=== PATIENT | female | born 1990 | race Caucasian/White ===

== ENCOUNTER 2016-03-21 17:41 | Emergency (ER) | payer OTHER ==
[~2016-03-21] VITALS: Wt 66.5 kg
[~2016-03-21 17:41] MED LIST: ALBU8.5H3 INH; AZIT250T94 PO; BENZ100C70 PO; CETI10CA PO; D-ME118S6 PO; FIORICET PO; FLUT9.9S NASAL; GUAI473L22 PO; HYDR-906 PO; IBUP-1542 PO; IBUP800T25 PO; METH-70 PO; ONDA4TAB14 PO; ONDA4TAB35 PO
[2016-03-21 19:42] LABS: ADD UMIC YES; URINE BILIRUBIN (Dip) NEGATIVE (NEGATIVE); URINE BLOOD (Dip) NEGATIVE (NEGATIVE); URINE COLOR LT. YELLOW (YELLOW); URINE GLUCOSE (Dip) NEGATIVE (NEGATIVE); URINE KETONES (Dip) NEGATIVE (NEGATIVE); URINE LEUKOCYTE ESTERASE (Dip) TRACE (NEGATIVE); URINE NITRITE (Dip) NEGATIVE (NEGATIVE); URINE TOTAL PROTEIN (Dip) NEGATIVE (NEGATIVE); URINE UROBILINOGEN (Dip) 1.0 E.U./dL (0.1-1.0)
[2016-03-21 19:46] LABS: BASOPHILS % 0.5 % (0.0-2.0); EOSINOPHILS # 0.2 10^3/ul (0.0-0.5); EOSINOPHILS % 1.7 % (0.0-7.0); HEMATOCRIT 38.8 % (37.0-47.0); LYMPHOCYTES # 2.1 10^3/ul (0.8-2.9); LYMPHOCYTES % 22.7 % (15.0-51.0); MEAN CORPUSCULAR HEMOGLOBIN 29.1 pg (29.0-33.0); MEAN CORPUSCULAR HGB CONC 33.6 g/dl (32.0-37.0); MEAN CORPUSCULAR VOLUME 86.7 fl (82.0-101.0); MONOCYTE # 0.7 10^3/ul (0.3-0.9); MONOCYTES % 7.2 % (0.0-11.0); NEUTROPHIL # 6.2 10^3/ul (1.6-7.5); NEUTROPHILS % 67.9 % (39.0-77.0); PLATELET COUNT 244 10^3/UL (140-440); RED BLOOD COUNT 4.47 10^6/ul (4.20-5.40); RED CELL DISTRIBUTION WIDTH 14.1 % (11.5-14.5); UNCORRECTED WBC 9.2 10^3/ul (4.8-10.8); WHITE BLOOD COUNT 9.2 10^3/ul (4.8-10.8)
[2016-03-21 19:47] LABS: CONDITION 1
[2016-03-21 19:49] LABS: POTASSIUM 3.7 mmol/L (3.5-5.1)
[2016-03-21 19:51] LABS: BILIRUBIN,INDIRECT 0.2 mg/dl (0-1.1); BILIRUBIN,TOTAL 0.2 mg/dl (0.2-1.3); CREATININE 0.72 mg/dl (0.44-1.00)
[2016-03-21 19:52] LABS: ALBUMIN/GLOBULIN RATIO 1.14; CALCIUM 8.9 mg/dl (8.4-10.2); TOTAL PROTEIN 7.5 g/dl (6.1-8.1)
[2016-03-21 19:54] LABS: SQUAMOUS EPITHELIAL CELL,UR MODERATE; URINE RBCS 0-2 /HPF (0)
[2016-03-21] MEDS ORDERED: ACET500C5 PO (20:13)
--- NOTE | 2016-03-21 20:17 | ERD ---
ER Documentation Chief Complaint Date/Time DATE: 03/21/16 TIME: 20:14 Chief Complaint right side abdominal pain for the past 2 wks. nausea no vomiting HPI This is a 25-year-old female presents to the ER with right-sided lower abdominal pain for the last 2 weeks. Patient states that the pain is piercing in quality it is nonradiating. Patient has not tried anything for the pain. She does admit to some diarrhea. She admits to nausea however denies vomiting. Patient denies any urinary frequency or dysuria. She denies any vaginal discharge. Her last normal menstrual period was in January. ROS 12 point review of systems was done, all negative except per HPI. Medications Home Meds Active Scripts Acetaminophen* (Tylophen*) 500 Mg Capsule, 1 CAP PO Q6H Y for PAIN AND OR ELEVATED TEMP, #20 CAP Prov:GILLIAN OLEA 03/21/16 Ondansetron (Ondansetron Odt) 4 Mg Tab.rapdis, 4 MG PO Q8 Y for NAUSEA AND/OR VOMITING, #30 TAB Prov:LELEEE SAEED NP 02/02/16 Fluticasone Propionate (Flonase Allergy Relief) 9.9 Ml [place].susp, 1 SPRAY NASAL BID, #1 BOTTLE TO EACH NOSTRIL Prov:LEELEE SAEED NP 02/02/16 Albuterol Sulfate* (Proair HFA*) 8.5 Gm Hfa.aer.ad, 2 PUFF INH Q4H Y for WHEEZING AND SOB, #1 INHALER Prov:LEELEE SAEED NP 02/02/16 Cetirizine Hcl* (Zyrtec*) 10 Mg Capsule, 10 MG PO DAILY, #30 TAB.CHEW Prov:LEELEE SAEED NP 02/02/16 Ibuprofen* (Motrin*) 600 Mg Tab, 600 MG PO Q6H Y for PAIN AND OR ELEVATED TEMP, #30 TAB Prov:LEELEE SAEED NP 02/02/16 Guaifenesin-Codeine Phosphate* (Guaifenesin* AC Cough Syrup) 473 Ml Liquid, 5 ML PO Q4H Y for COUGH, #60 ML Prov:LEELEE SAEED NP 02/02/16 Hydrocodone/Acetaminophen (Pep 5-325 Tablet) 1 Each Tablet, 1 TAB PO Q6H Y for PAIN, #7 TAB Prov:MONICA OWENS. DO 01/04/16 Methocarbamol* (Robaxin*) 750 Mg Tablet, 750 MG PO TID, #30 TAB Prov:IJEOMA OWENSS Carole. DO 01/04/16 Ibuprofen* (Motrin*) 800 Mg Tab, 800 MG PO Q6H Y for PAIN AND OR ELEVATED TEMP, #30 TAB Prov:IJEOMA OWENSS A. DO 01/04/16 Ibuprofen* (Motrin*) 600 Mg Tab, 600 MG PO Q6, #30 TAB Prov:GILLIAN OLEA 07/10/15 Ondansetron Hcl* (Zofran* ODT) 4 mg -ODT Tab.disper, 4 MG PO Q6 Y for NAUSEA AND /OR VOMITING, #5 TAB Prov:SARTHAK SILVERMAN PA-C 06/08/15 Dextromethorphan Hb-Promethazine Hcl (Promethazine DM Syrup) 180 Ml Syrup, 5 ML PO Q6H Y for COUGH, #4 OZ Prov:SARTHAK SILVERMAN PA-C 06/08/15 Azithromycin* (Zithromax*) 250 Mg Tablet, 250 MG PO .ZPACK DIRECTED, #6 TAB TAKE 500 MG (2 TABS) THE FIRST DAY THEN 250 MG (1 TAB) DAYS 2-5 Prov:SARTHAK SILVERMAN PA-C 06/08/15 Ibuprofen* (Ibuprofen*) 600 Mg Tablet, 600 MG PO Q6H Y for PAIN AND OR ELEVATED TEMP, #30 TAB Prov:SARTHAK SILVERMAN PA-C 06/08/15 Benzonatate* (Tessalon Perle*) 100 Mg Capsule, 100 MG PO Q8H Y for COUGH, #14 CAP Prov:SARTHAK SILVERMAN PA-C 06/08/15 Acetamin/Butalbital/Caffeine* (Fioricet*) 1 Tab Tab, 1 TAB PO Q4H Y for PAIN LEVEL 1-5, #20 TAB Prov:NICK HENEDRSON DO 04/03/15 Allergies Allergies: Coded Allergies: Bee Sting Kit (Verified Allergy, Mild, 05/18/11) No Known Drug Allergies (Verified Allergy, Unknown, 02/28/14) PMhx/Soc Medical and Surgical Hx: pt denies Medical Hx, pt denies Surgical Hx History of Surgery: No Anesthesia Reaction: No Hx Neurological Disorder: No Hx Respiratory Disorders: No Hx Cardiac Disorders: No Hx Psychiatric Problems: No Hx Miscellaneous Medical Probl: No Hx Alcohol Use: No Hx Substance Use: No Hx Tobacco Use: No Physical Exam Vitals Vital Signs Date Time Temp Pulse Resp B/P Pulse Ox O2 Delivery O2 Flow Rate FiO2 03/21/16 18:10 98.7 68 20 103/85 98 Physical Exam GENERAL: The patient is well developed and appropriate for usual state of health , in no apparent distress. HEENT: Atraumatic. C CHEST: Clear to auscultation bilaterally. There are no rales, wheezes or rhonchi. HEART: Regular rate and rhythm. No murmurs, clicks, rubs or gallops. ABDOMEN: Soft, and nondistended. Good bowel sounds. No rebound or guarding. No gross peritonitis. No gross organomegaly or masses. No Alanis sign or McBurney point tenderness. slightly tender to palpation in the right pelvic area. BACK: No midline or flank tenderness. no cva tenderness EXTREMITIES: Equal pulses bilaterally. There is no peripheral clubbing, cyanosis or edema. No focal swelling or erythema. Full range of motion. Grossly neurovascularly intact. NEURO: Alert and oriented. Result Diagram: 03/21/16 1720 03/21/16 1720 Results 24 hrs Laboratory Tests Test 03/21/16 17:20 Alanine Aminotransferase (ALT/SGPT) 27IU/L Albumin 4.0g/dl Albumin/Globulin Ratio 1.14 Alkaline Phosphatase 30IU/L Anion Gap 15 Aspartate Amino Transf (AST/SGOT) 15IU/L Basophils # 0.010^3/ul Basophils % 0.5% Blood Urea Nitrogen 16mg/dl Calcium Level 8.9mg/dl Carbon Dioxide Level 27mmol/L Chloride Level 103mmol/L Creatinine 0.72mg/dl Direct Bilirubin 0.00mg/dl Eosinophils # 0.210^3/ul Eosinophils % 1.7% Globulin 3.50g/dl Glucose Level 71mg/dl Hematocrit 38.8% Hemoglobin 13.0g/dl Indirect Bilirubin 0.2mg/dl Lymphocytes # 2.110^3/ul Lymphocytes % 22.7% Mean Corpuscular Hemoglobin 29.1pg Mean Corpuscular Hemoglobin Concent 33.6g/dl Mean Corpuscular Volume 86.7fl Mean Platelet Volume 8.0fl Monocytes # 0.710^3/ul Monocytes % 7.2% Neutrophils # 6.210^3/ul Neutrophils % 67.9% Nucleated Red Blood Cells # 0.010^3/ul Nucleated Red Blood Cells % 0.0/100WBC Platelet Count 46538^3/UL Potassium Level 3.7mmol/L Red Blood Count 4.4710^6/ul Red Cell Distribution Width 14.1% Sodium Level 141mmol/L Total Bilirubin 0.2mg/dl Total Protein 7.5g/dl Urine Bilirubin NEGATIVE Urine Clarity CLEAR Urine Color LT. YELLOW Urine Glucose NEGATIVE% Urine Hemoglobin NEGATIVE Urine Ketones NEGATIVE Urine Leukocyte Esterase TRACE Urine Microscopic RBC 0-2/HPF Urine Microscopic WBC 0-2/HPF Urine Nitrite NEGATIVE Urine Specific [place] 1.025 Urine Squamous Epithelial Cells MODERATE Urine Total Protein NEGATIVE Urine Urobilinogen 1.0 E.U./dL Urine pH 6.0 White Blood Count 9.210^3/ul Procedures/MDM Differential diagnosis: Threatened , missed , incomplete , ectopic , molar , UTI, pyelonephritis. Patient was sent by urgent care doctor to rule out appendicitis, however patient's test was positive. Because patient has abdominal pain she was worked up to rule out ectopic . I am awaiting ultrasound and beta quant. Please refer to other providers note for further management and care. If everything is normal patient will be sent home with Tylenol for pain control. Departure Diagnosis: Primary Impression: Condition: Stable Patient Instructions: , New Dx Additional Instructions: Call your primary care doctor TOMORROW for an appointment during the next 1-2 days.See the doctor sooner or return here if your condition worsens before your appointment time. GILLIAN OLEA Mar 21, 2016 20:17
--- NOTE | 2016-03-21 20:49 | RADRPT ---
PROCEDURE: US Pelvis. CLINICAL INDICATION: Vaginal bleeding. Pelvic pain. TECHNIQUE: Multiple sonographic images of the pelvis were obtained utilizing a transabdominal and endovaginal technique. The images were reviewed on a PACS workstation. COMPARISON: None available. FINDINGS: There is an intrauterine gestational sac. A yolk sac or pole is not seen. The mean gestation al sac size is 0.44 cm consistent with a 5-week 1-day gestation. No abnormal fluid collections are seen.. The right ovary has a normal echotexture and measures 2.9 x 1.2 x 1.6 cm. There is a 1.4 x 1. 2 x 1.1 cm left ovarian cyst. The left ovary has a normal echotexture and measures 2.9 x 2.2 x 2.1 c m. No adnexal masses are noted. IMPRESSION: 1. Tiny intrauterine gestational sac which measures 5 weeks 1 day without a yolk sac or pole c onsistent with an early intrauterine gestation. Correlation with serial quantitative beta HCGs and follow-up ultrasound is suggested. 2. 1.4 x 1.2 x 1.1 cm left ovarian cyst, likely a corpus luteal cyst. RPTAT: [facility] Physician Dima Date Time Electronically viewed and signed by Physician Dima on 03/21/2016 20:49 /
--- NOTE | 2016-03-21 21:00 | EN ---
Date/Time of Note Date/Time of Note DATE: 03/21/16 TIME: 20:59 ER Progress Note This is a 25-year-old female presenting to the emergency room with a new diagnosis of . This patient was passed down to me from Doretha Akhtar to record her ultrasound. OB ultrasound stated 1. Tiny intrauterine gestational sac which measures 5 weeks 1 day without a yolk sac or pole consistent with an early intrauterine gestation. Correlation with serial quantitative beta HCGs and follow-up ultrasound is suggested. 2. 1.4 x 1.2 x 1.1 cm left ovarian cyst, likely a corpus luteal cyst. Patient was discharged per Doretha Akhtar's note SARTHAK SILVERMAN PA-C Mar 21, 2016 21:00
[2016-03-21 21:11] VITALS: BP 106/56; PULSE 83; RESP 20; TEMP 98.7
== END 2016-03-21 21:05 | disposition home or self-care (01) ==
LOC: FTE 17:41
DX: R10.2 Pelvic and perineal pain (principal); Z33.1 Pregnant state, incidental
CPT/HCPCS: 36415; 76801; 76817; 80053; 81001; 84702; 85025; 86900; 86901; Z7502; 81003

== ENCOUNTER 2016-03-28 10:44 | Emergency (ER) | END 2016-03-28 12:36 | disposition left against medical advice (07) | DX: O20.0 Threatened abortion (principal); Z3A.00 Weeks of gestation of pregnancy not specified ==

== ENCOUNTER 2016-08-31 20:02 | Emergency (ER) | payer OTHER ==
[~2016-08-31] VITALS: Ht 162.6 cm; Wt 73.5 kg
[~2016-08-31 20:02] MED LIST changes: +ACET500C5 PO
[2016-08-31 20:06] VITALS: Ht 162.6 cm; Wt 73.5 kg
[2016-08-31] MEDS ORDERED: ACETAMINOPHEN 325 MG TAB PO STA (21:01)
[2016-08-31 21:28] LABS: BASOPHILS % 0.3 % (0.0-2.0); EOSINOPHILS # 0.2 10^3/ul (0.0-0.5); EOSINOPHILS % 2.5 % (0.0-7.0); HEMATOCRIT 36.8 % (37.0-47.0); HEMOGLOBIN 12.7 g/dl (12.0-16.0); LYMPHOCYTES # 2.1 10^3/ul (0.8-2.9); LYMPHOCYTES % 21.5 % (15.0-51.0); MEAN CORPUSCULAR HGB CONC 34.5 g/dl (32.0-37.0); MEAN PLATELET VOLUME 9.7 fl (7.4-10.4); MONOCYTE # 0.5 10^3/ul (0.3-0.9); MONOCYTES % 5.4 % (0.0-11.0); NEUTROPHIL # 6.7 10^3/ul (1.6-7.5); NEUTROPHILS % 69.8 % (39.0-77.0); PLATELET COUNT 231 10^3/UL (140-415); RED BLOOD COUNT 4.23 10^6/ul (4.20-5.40); RED CELL DISTRIBUTION WIDTH 13.9 % (11.5-14.5); WHITE BLOOD COUNT 9.7 10^3/ul (4.8-10.8)
[2016-08-31 21:37] LABS: ADD UMIC YES; UR ASCORBIC ACID NEGATIVE (NEGATIVE); UR BILIRUBIN (Dip) NEGATIVE (NEGATIVE); UR BLOOD (Dip) NEGATIVE (NEGATIVE); UR CLARITY SLIGHTLY CLOUDY (CLEAR); UR COLOR YELLOW (YELLOW); UR GLUCOSE (Dip) NEGATIVE (NEGATIVE); UR KETONES (Dip) NEGATIVE (NEGATIVE); UR LEUKOCYTE ESTERASE (Dip) 3+ Leu/ul (NEGATIVE); UR NITRITE (Dip) NEGATIVE (NEGATIVE); UR RBC 2 /HPF (0-5); UR SPECIFIC GRAVITY (Dip) 1.023 (1.003-1.030); UR SQUAMOUS EPITHELIAL CELL MODERATE /HPF (FEW); UR TOTAL PROTEIN (Dip) NEGATIVE (NEGATIVE); UR UROBILINOGEN (Dip) NEGATIVE (NEGATIVE)
--- NOTE | 2016-08-31 21:44 | RADRPT ---
PROCEDURE: US Abdomen - survey. CLINICAL INDICATION: Trauma. Pain. TECHNIQUE: Real-time ultrasound survey of the abdomen was performed. COMPARISON: None FINDINGS: Limited survey of the upper quadrants of the abdomen was performed. No free fluid is identified. I ncidental note is made of a 1.8 cm left ovarian cyst. Color Doppler flow is identified to the left ovary. IMPRESSION: No free fluid. Incidental left ovarian cyst. RPTAT: HMVK .James Perez MD, Date Time Electronically viewed and signed by .James Perez MD, on 08/31/2016 21:44 .K/
--- NOTE | 2016-08-31 21:47 | RADRPT ---
PROCEDURE: Ultrasound of the abdomen. CLINICAL INDICATION: Abdominal pain status post trauma. TECHNIQUE: Sonographic images of the abdomen were performed. COMPARISON: No pertinent prior examinations were submitted for comparison. FINDINGS: Liver: The liver is normal in echogencity and size measuring approximately 14.7 cm. The hepatic vei ns and portal veins are patent with appropriate directional flow. No intrahepatic ductal dilatation is seen. Gallbladder: The gallbladder is not distended and has normal wall thickness. No pericholecystic flu id or gallstones are visualized. The common duct measures 2.4 mm. Pancreas: There is limited evaluation of the pancreatic body and tail. The visualized portions of the pancreas are unremarkable. Kidneys: The right kidney measures 10.1 cm. There is normal corticomedullary differentiation. Ther e is no hydronephrosis. Multiple echogenic foci are seen within the right kidney, measuring up to 5 mm. IVC: The visualized portion of the inferior vena cava is unremarkable. Aorta: Normal in size. Free fluid: None. IMPRESSION: Right nephrolithiasis. No intra-abdominal free fluid. Ultrasound is otherwise not sensitive for sequela of trauma. RPTAT: HIKT .Supa Snell MD, Date Time Electronically viewed and signed by .Supa Snell MD, on 08/31/2016 21:46 .T/
[2016-08-31 21:49] LABS: ALBUMIN 4.4 g/dl (3.3-4.9); ALBUMIN/GLOBULIN RATIO 1.51; BILIRUBIN,INDIRECT 0.1 mg/dl (0-1.1); BILIRUBIN,TOTAL 0.1 mg/dl (0.2-1.3); CALCIUM 9.3 mg/dl (8.4-10.2); CREATININE 0.69 mg/dl (0.44-1.00); POTASSIUM 3.4 mmol/L (3.5-5.1); TOTAL PROTEIN 7.3 g/dl (6.1-8.1)
--- NOTE | 2016-08-31 22:23 | RADRPT ---
PROCEDURE: US OB. CLINICAL INDICATION: , vaginal bleeding. TECHNIQUE: Multiple sonographic images of the pelvis were obtained. Transabdominal views of the p marek are available for review. The images were reviewed on a PACS workstation. COMPARISON: None. FINDINGS: There is a single intrauterine . The mean gestational sac diameter measures 1.14 cm, corres ponding to a 6-afsn-9-day . The crown-rump length equals 0.29 cm which corresponds to a 5- week-6-day gestational age by ultrasound criteria. cardiac activity measures 102 bpm. A smal l subchorionic hematoma is identified. The right ovary measures 2.4 x 1.4 x 1.2 cm. The left ovary measures 3.3 x 2.5 x 3.0 cm. There are t wo left ovarian cysts measuring up to 2.2 cm. The larger cyst is a simple cyst, while the smaller on e appears mildly hemorrhagic. These cysts are normal for age. Blood flow is demonstrated to both o varies. The adnexa are unremarkable. There is no free pelvic fluid. IMPRESSION: 1. Single viable intrauterine gestation of approximately 5 weeks 6 days. 2. The estimated date of delivery is 04/27/2017. 3. Small subchorionic hematoma. Continued follow-up is recommended. RPTAT: HTAR .Eleuterio Stephens MD, Date Time Electronically viewed and signed by .Eleuterio Stephens MD, on 08/31/2016 22:23 .R/
[2016-08-31] MEDS ORDERED: CEPH-443 PO (22:53)
[2016-08-31] MEDS ORDERED: ACET500C5 PO (22:53)
[2016-08-31 23:11] VITALS: BP 104/53; PULSE 68; RESP 20; TEMP 97.9
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
== END 2016-08-31 23:11 | disposition home or self-care (01) ==
LOC: FTE 20:02
DX: O20.9 Hemorrhage in early pregnancy, unspecified (principal); S39.91XA Unspecified injury of abdomen, initial encounter; O23.41 Unspecified infection of urinary tract in pregnancy, first trimester; R10.2 Pelvic and perineal pain; V49.40XA Driver injured in collision with unspecified motor vehicles in traffic accident, initial encounter
CPT/HCPCS: 36415; 76705; 76801; 80053; 81001; 84702; 85025; 86900; 86901; Z7502; Z7610

== ENCOUNTER 2017-08-21 17:42 | Emergency (ER) | END 2017-08-21 21:59 | disposition home or self-care (01) ==

== ENCOUNTER 2017-09-29 12:06 | Emergency (ER) | END 2017-09-29 15:30 | disposition home or self-care (01) ==

== ENCOUNTER 2018-01-14 13:46 | Emergency (ER) | END 2018-01-14 16:27 | disposition home or self-care (01) ==

== ENCOUNTER 2018-06-04 17:50 | Outpatient (CLI) | payer MEDICAID ==
[~2018-06-04] VITALS: Ht 152.4 cm; Wt 84.2 kg
[~2018-06-04 17:50] MED LIST changes: -ALBU8.5H3 INH; +ALBU8.5H8 INH; +AZIT250T PO; -AZIT250T94 PO; +BENZ-6 PO; -BENZ100C70 PO; +CEPH-443 PO; +D-ME473S2 PO; +DOXY100T20 PO; +HYDR-4011 PO; -HYDR-906 PO; -IBUP800T25 PO; +IBUP800T48 PO; -METH-70 PO; +METH750T93 PO
[2018-06-04 18:27] VITALS: BP 90/53; PULSE 81; Ht 152.4 cm; Wt 84.2 kg
[2018-06-04] MEDS ORDERED: PNV11TAB PO (18:30)
[2018-06-04] MEDS ORDERED: HYDROCODONE/APAP (5/325) TAB PO ONE (20:00)
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
--- NOTE | 2018-06-04 22:41 | PN ---
Triage Information Date/Time Reason for visit: Knee pain after falling on her knee. No abdominal trauma Weeks of Gestation 27-week and 1 day /Para 5 1 Diabetes: none Hypertention: none Objective Vital Signs Date Temp Pulse Resp B/P (MAP) Pulse Ox O2 O2 Flow FiO2 Time Delivery Rate 06/04/18 98.4 81 90/53 (65) 18:27 Heart Rate: 140's Contractions: None Results/Medications Result Diagram: 06/04/181923 Results 24 hrs Laboratory Tests Test 06/04/18 19:24 White Blood Count 10.1 Red Blood Count 3.76 L Hemoglobin 10.5 L Hematocrit 32.5 L Mean Corpuscular Volume 86.4 Mean Corpuscular Hemoglobin 27.9 L Mean Corpuscular Hemoglobin Concent 32.3 Red Cell Distribution Width 12.8 Platelet Count 255 Mean Platelet Volume 9.2 Immature Granulocytes % 0.400 Neutrophils % 74.7 Lymphocytes % 19.0 Monocytes % 3.9 Eosinophils % 1.7 Basophils % 0.3 Nucleated Red Blood Cells % 0.0 Immature Granulocytes # 0.040 H Neutrophils # 7.5 Lymphocytes # 1.9 Monocytes # 0.4 Eosinophils # 0.2 Basophils # 0.0 Nucleated Red Blood Cells # 0.0 Imaging Results Single viable intrauterine gestation. Cardiac activity: 137 beats per minute. Presentation: Cephalic Placenta: Location: Anterior. Appearance: Grade 1. No previa or abruption. Amniotic Fluid: DEV = 15.7 cm Measurements: BPD = 7.01 cm, 28 weeks 1 days HC = 25.72 cm, 28 weeks 0 days AC = 23.62 cm, 28 weeks 0 days FL = 4.92 cm, 26 weeks 4 days Gestational Age: AUA estimated gestational age: 27 weeks 5 days LMP estimated gestational age: 27 weeks 1 days AUA estimated date of delivery: 08/29/2018 The EFW = 1083 g, 52 %ile based on LMP age. Structures: Anatomic survey is not performed RPTAT:HJJR IMPRESSION: 1. Single living intrauterine gestation of 27 weeks 5 days by ultrasound criteria. 2. Estimated date of delivery of 08/29/2018. 3. Anterior grade 1 placenta without evidence of abruption. 4. Normal amniotic fluid index of 15.7 cm.. Physician Umm Date Time Electronically viewed and signed by Dwight Tabor Physician on 06/04/2018 20:36 JR/ Disposition: Discharge Assessment/Plan 27-year old 7 para 1051 with single intrauterine at 27 weeks and 1 day with AYLA of 09/07/2008 complaining of bilateral knee pain due to fall. She states the low trauma to abdomen. She states good movement. She denies nausea, vomiting, shortness of breath, chest pain, abdominal pain, heada cleo, visual changes, vaginal bleeding or LOF. -FHR: No sign of metabolic acidosis- Category I -Contractions: None -Ultrasound performed as noted above. No placental abruption is noted. -Fletcher 325/5 mg given -I did recommend follow-up in the emergency department for possible trauma to kn ee. Patient states is feeling much better and will back to emergency department if still has pain -Symptoms and sign of labor, preeclampsia, kick count discussed with patient, she voiced understanding. All of her questions answered. -Patient was discharged home in stable condition with the appropriate discharge instructions provided. I would like patient to have close follow-up with her primary physician or outpatient clinic in 1-2 days or return to triage for worsening symptoms or any other urgent concerns. DOROTHY ARROYO Jun 04, 2018 22:40
== END 2018-06-04 21:30 | disposition home or self-care (01) ==
LOC: OBT 17:50 → L-D 17:51 → OBT 21:30
PROVIDERS: ATTEND Obstetrics & Gynecology
DX: O9A.212 Injury, poisoning and certain other consequences of external causes complicating pregnancy, second trimester (principal); M25.562 Pain in left knee; M25.561 Pain in right knee; W18.30XA Fall on same level, unspecified, initial encounter; Y92.89 Other specified places as the place of occurrence of the external cause; Z3A.27 27 weeks gestation of pregnancy
CPT/HCPCS: 76815; 85025; 86850; 86900; 86901; Z7500; Z7610; G0463

== ENCOUNTER 2018-06-07 10:31 | Emergency (ER) | payer MEDICAID ==
[~2018-06-07] VITALS: Ht 157.5 cm; Wt 84.9 kg
[~2018-06-07 10:31] MED LIST changes: -ACET500C5 PO; -AZIT250T PO; -BENZ-6 PO; -CEPH-443 PO; -CETI10CA PO; -D-ME118S6 PO; -D-ME473S2 PO; -DOXY100T20 PO; -FIORICET PO; -FLUT9.9S NASAL; -GUAI473L22 PO; -HYDR-4011 PO; -IBUP-1542 PO; -IBUP800T48 PO; -METH750T93 PO; -ONDA4TAB14 PO; -ONDA4TAB35 PO; +PNV11TAB PO
[2018-06-07 10:37] VITALS: Ht 157.5 cm; Wt 84.9 kg
[2018-06-07] MEDS ORDERED: IPRATROPIUM (NEB) 0.5 MG/2.5 ML AMP INH STA (10:45)
[2018-06-07] MEDS ORDERED: ALBUTEROL 0.5% (NEB) 2.5 MG/0.5 ML AMP INH STA (10:45)
[2018-06-07] MEDS ORDERED: predniSONE 20 MG TAB PO STA (10:45)
--- NOTE | 2018-06-07 11:18 | ERD ---
ER Documentation Chief Complaint Chief Complaint sob coughing & asthma used inhaler <1hr ago no relief HPI 27-year-old female who has a history of asthma who presents with cough and congestion for 1-2 weeks. The patient has tried amoxicillin and Z-Andrew without relief. The patient is 27 weeks without abdominal pain or vaginal bleeding. The patient denies any positional shortness of breath, no lower extremity swelling. She states the cough and wheezing is similar to asthma exacerbations in the past. ROS All systems reviewed and are negative except as per history of present illness. Medications Home Meds Active Scripts Prednisone* (Prednisone*) 20 Mg Tab, 40 MG PO DAILY for 4 Days, TAB Prov:BOB REYES MD 06/07/18 Albuterol Sulfate* (Ventolin HFA*) 18 Gm Hfa.aer.ad, 2 PUFF INHALATION Q4H, #1 INHALER Prov:BOB REYES MD 06/07/18 Albuterol Sulfate* (Proair HFA*) 8.5 Gm Hfa.aer.ad, 2 PUFF INH Q4H PRN for WHEEZING AND SOB, #1 INHALER Prov:LEELEE SAEED NP 02/02/16 Reported Medications [id number] ( 19) 1 Each Tablet, 1 TAB PO DAILY, TAB 06/04/18 Discontinued Scripts Cephalexin* (Keflex*) 500 Mg Capsule, 500 MG PO TID for 7 Days, CAP Prov:AUBREE ESPOSITO-C 01/14/18 Acetaminophen* (Tylophen*) 500 Mg Capsule, 1 CAP PO Q6H PRN for PAIN AND OR ELEVATED TEMP, #20 CAP Prov:MAYCO GUILLERMO-C 09/29/17 Albuterol Sulfate* (Proair HFA*) 8.5 Gm Hfa.aer.ad, 2 PUFF INH Q4, #1 INHALER Prov:GILLIAN OLEA 08/21/17 Dextromethorphan Hb-Promethazine Hcl* (Promethazine DM* Syrup) 473 Ml Syrup, 10 ML PO Q6 PRN for COUGH for 5 Days, ML Prov:GILLIAN OLEA 08/21/17 Doxycycline Hyclate* (Doxycycline Hyclate*) 100 Mg Tablet.dr, 100 MG PO BID for 5 Days, TAB Prov:GILLIAN OLEA 08/21/17 Acetaminophen* (Tylophen*) 500 Mg Capsule, 1 CAP PO Q6H PRN for PAIN AND OR ELEVATED TEMP, #20 CAP Prov:TAN ROBLES PA-C 08/31/16 Cephalexin* (Keflex*) 500 Mg Capsule, 500 MG PO TID for 7 Days, #21 CAP Prov:TAN ROBLES PA-C 08/31/16 Acetaminophen* (Tylophen*) 500 Mg Capsule, 1 CAP PO Q6H PRN for PAIN AND OR ELEVATED TEMP, #20 CAP Prov:GILLIAN OLEA 03/21/16 Ondansetron (Ondansetron Odt) 4 Mg Tab.rapdis, 4 MG PO Q8 PRN for NAUSEA AND/OR VOMITING, #30 TAB Prov:LEELEE SAEED NP 02/02/16 Fluticasone Propionate (Flonase Allergy Relief) 9.9 Ml Rodessa.susp, 1 SPRAY NASAL BID, #1 BOTTLE TO EACH NOSTRIL Prov:LEELEE SAEED NP 02/02/16 Cetirizine Hcl* (Zyrtec*) 10 Mg Capsule, 10 MG PO DAILY, #30 TAB.CHEW Prov:LEELEE SAEED NP 02/02/16 Ibuprofen* (Motrin*) 600 Mg Tab, 600 MG PO Q6H PRN for PAIN AND OR ELEVATED TEMP, #30 TAB Prov:LEELEE SAEED NP 02/02/16 Guaifenesin-Codeine Phosphate* (Guaifenesin* AC Cough Syrup) 473 Ml Liquid, 5 ML PO Q4H PRN for COUGH, #60 ML Prov:LEELEE SAEED NP 02/02/16 Hydrocodone/Acetaminophen ([place] 5-325 Tablet) 1 Each Tablet, 1 TAB PO Q6H PRN for PAIN, #7 TAB Prov:MONICA OWENS DO 01/04/16 Methocarbamol* (Robaxin*) 750 Mg Tablet, 750 MG PO TID, #30 TAB Prov:MONICA OWENS DO 01/04/16 Ibuprofen* (Motrin*) 800 Mg Tab, 800 MG PO Q6H PRN for PAIN AND OR ELEVATED TEMP, #30 TAB Prov:MONICA OWENS CaroleAlexus CAVAZOS 01/04/16 Ibuprofen* (Motrin*) 600 Mg Tab, 600 MG PO Q6, #30 TAB Prov:GILLIAN OLEA 16 Ondansetron Hcl* (Zofran* ODT) 4 mg -ODT Tab.disper, 4 MG PO Q6 PRN for NAUSEA AND/OR VOMITING, #5 TAB Prov:SARTHAK SILVERMAN PA-C 06/08/15 Dextromethorphan Hb-Promethazine Hcl (Promethazine DM Syrup) 180 Ml Syrup, 5 ML PO Q6H PRN for COUGH, #4 OZ Prov:SARTHAK SILVERMAN PA-C 06/08/15 Azithromycin* (Zithromax*) 250 Mg Tablet, 250 MG PO .ZPACK DIRECTED, #6 TAB TAKE 500 MG (2 TABS) THE FIRST DAY THEN 250 MG (1 TAB) DAYS 2-5 Prov:SARTHAK SILVERMAN PA-C 06/08/15 Ibuprofen* (Ibuprofen*) 600 Mg Tablet, 600 MG PO Q6H PRN for PAIN AND OR ELEVATED TEMP, #30 TAB Prov:SARTHAK SILVERMAN PA-C 16 Benzonatate* (Tessalon Perle*) 100 Mg Capsule, 100 MG PO Q8H PRN for COUGH, #14 CAP Prov:SARTHAK SILVERMAN PA-C 06/08/15 Acetamin/Butalbital/Caffeine* (Fioricet*) 1 Tab Tab, 1 TAB PO Q4H PRN for PAIN LEVEL 1-5, #20 TAB Prov:NICK HENDERSON DO 04/03/15 Allergies Allergies: Coded Allergies: Bee Sting Kit (Verified Allergy, Mild, 03/28/16) No Known Drug Allergies (Verified Allergy, Unknown, 03/28/16) PMhx/Soc History of Surgery: No Anesthesia Reaction: No Hx Neurological Disorder: No Hx Respiratory Disorders: No Hx Cardiac Disorders: No Hx Psychiatric Problems: No Hx Miscellaneous Medical Probl: No Hx Alcohol Use: Yes (SOCIALLY) Hx Substance Use: No Hx Tobacco Use: No FmHx Family History: No diabetes Physical Exam Vitals Vital Signs Date Temp Pulse Resp B/P (MAP) Pulse Ox O2 O2 Flow FiO2 Time Delivery Rate 06/07/18 98.8 111 20 101/59 100 Room Air 12:01 (73) 06/07/18 2.0 10:58 06/07/18 103 20 97 Nasal 2.0 10:58 Cannula 06/07/18 97.4 113 20 148/67 99 10:37 (94) Physical Exam General: Well developed, well nourished, no acute distress Head: Normocephalic, atraumatic. Eyes: Pupils equally reactive, EOM intact ENT: Moist mucous membranes Neck: Supple, no lymphadenopathy Respiratory: scant wheezing, no distress, good aeration Cardiovascular: RRR, no murmurs, rubs, or gallops Abdominal: Soft, non-tender, non-distended, no peritoneal signs : Deferred MSK: No edema, no unilateral swelling, 5/5 strength Neurologic: Alert and oriented, moving all extremities, normal speech, no focal weakness, no cerebellar signs Skin: No rash Psych: Anxious mood Results 24 hrs Current Medications Medications Dose Sig/Marcus Start Time Status Last (Trade) Ordered Route PRN Stop Time Admin Dose Reason Admin Albuterol 5 mg ONCE STAT 06/07/18 DC 06/07/18 (Proventil INH 10:45 06/07/18 10:58 0.5% (Neb)) 10:46 Ipratropium 1 mg ONCE STAT 06/07/18 DC 06/07/18 [place] INH 10:45 06/07/18 10:58 (Atrovent 10:46 0.02% (Neb)) Prednisone 60 mg ONCE STAT 06/07/18 DC 06/07/18 (Prednisone) PO 10:45 06/07/18 10:51 10:46 Procedures/MDM MEDICAL DECISION MAKING: The patient is a 27 weeks gestation and has wheezing cough congestion and URI type symptoms. I believe her presentation is consistent with viral URI with concomitant mild asthma exacerbation. Anxiety is playing slight role. Her blood pressure is borderline but she has no evidence of pedal edema and no rales at the bases of her lung exam I do not believe this is consistent with cardiomyopathy or -induced hypertension. The patient will benefit from treatment of asthma with breathing treatment and steroids. We discussed the risk benefits and alternatives of steroids in the setting of asthma but recommendations and current guidelines recommend treating mother with steroids as needed. She would benefit given persistence of symptoms. ER COURSE: * The patient received a breathing treatment and steroid. The patient is now resting comfortably. Vital signs have improved. The patient's blood pressure is now normal. I believe her initial blood pressure was more likely related to stress, anxiety response rather than -induced hypertension. No indication for [facility] consultation at this time. Close [facility] follow-up as necessary. * At this point the patient can be safely discharged home with return precautions discussed and understood. CONSULTATION: [None] DISPOSITION PLAN: The patient does not have an identifiable emergent medical condition that warrants inpatient hospitalization at this time. The patient is deemed safe for discharge with outpatient follow-up. We discussed follow up with the patient's primary care doctor within 24 to 48 hours as needed. We also discussed return to the emergency room for worsening symptoms or worsening condition. Outpatient referral: [facility] Discharge Medications: Albuterol, prednisone Departure Diagnosis: Primary Impression: Asthma exacerbation Asthma severity: mild Asthma persistence: intermittent Qualified Codes: J45.21 - Mild intermittent asthma with (acute) exacerbation Additional Impression: Viral URI Condition: Stable BOB REYES MD Jun 07, 2018 11:18
[2018-06-07 12:01] VITALS: BP 101/59; PULSE 111; RESP 20
[2018-06-07] MEDS ORDERED: PRED20TA PO (12:10)
[2018-06-07] MEDS ORDERED: ALBU18HF INHALATION (12:10)
== END 2018-06-07 12:20 | disposition home or self-care (01) ==
LOC: E/R 10:31
DX: O99.512 Diseases of the respiratory system complicating pregnancy, second trimester (principal); J45.21 Mild intermittent asthma with (acute) exacerbation; J06.9 Acute upper respiratory infection, unspecified; Z3A.27 27 weeks gestation of pregnancy
CPT/HCPCS: 94644; J7512; Z7502; Z7610

== ENCOUNTER 2018-06-10 03:30 | Outpatient (CLI) | payer MEDICAID ==
[~2018-06-10] VITALS: Ht 152.4 cm; Wt 85.4 kg
[~2018-06-10 03:30] MED LIST changes: +ALBU18HF INHALATION; +PRED20TA PO
[2018-06-10 03:56] VITALS: BP 114/58; PULSE 101; RESP 20; Ht 152.4 cm; Wt 85.4 kg
[2018-06-10] MEDS ORDERED: GUAI5SYR2 PO (04:00)
--- NOTE | 2018-06-10 06:29 | PN ---
Triage Information Date/Time 06/10/1810/21/616 Reason for visit: Abd/pelvic pain Weeks of Gestation 28w /Para A5 Diabetes: none Hypertention: none Additional information generalized abdoninal pain coughing, known to have asthma was here on 06/04/18/and ,06/08/18 for coughing,sent down to ER had breathing treatment , sent to home with robitussin DM and prednisone abdominal pain is alleviated by resting,aggrevated with movement and coughing. Objective Vital Signs Date Temp Pulse Resp B/P (MAP) Pulse Ox O2 O2 Flow FiO2 Time Delivery Rate 06/10/18 97.9 101 20 114/58 Room Air 03:56 (76) Heart Rate Comments adequate Contractions: None Exam abdomen generalized mild tender with RUQ more tenderness with deep breathing Rt CVA ++ tenderness, left neg Results/Medications Result Diagram: 06/10/18 0435 Results 24 hrs Laboratory Tests Test 06/10/18 04:35 White Blood Count 9.8 Red Blood Count 3.43 L Hemoglobin 9.6 L Hematocrit 29.0 L Mean Corpuscular Volume 84.5 Mean Corpuscular Hemoglobin 28.0 L Mean Corpuscular Hemoglobin Concent 33.1 Red Cell Distribution Width 12.8 Platelet Count 243 Mean Platelet Volume 8.9 Immature Granulocytes % 0.600 H Neutrophils % 72.9 Lymphocytes % 18.0 Monocytes % 7.3 Eosinophils % 1.0 Basophils % 0.2 Nucleated Red Blood Cells % 0.0 Immature Granulocytes # 0.060 H Neutrophils # 7.1 Lymphocytes # 1.8 Monocytes # 0.7 Eosinophils # 0.1 Basophils # 0.0 Nucleated Red Blood Cells # 0.0 Urine Color YELLOW Urine Clarity SLIGHTLY CLOUDY A Urine pH 7.0 Urine Specific [place] 1.014 Urine Ketones NEGATIVE Urine Nitrite NEGATIVE Urine Bilirubin NEGATIVE Urine Urobilinogen NEGATIVE Urine Leukocyte Esterase NEGATIVE Urine Microscopic RBC 1 Urine Microscopic WBC 2 Urine Squamous Epithelial Cells FEW Urine Bacteria FEW A Urine Mucus FEW A Urine Hemoglobin NEGATIVE Urine Glucose NEGATIVE Urine Total Protein NEGATIVE Imaging Results BPP 10/10 DEV 13.3 CL 3.8 abdominal U/S neg for gallstones Disposition: ER Assessment/Plan A IUP 28w abdominal pain (ligament pain due to severe coughing) R/O bronchitis,with asthma P To ER for futher evaluation JAVAD ERIC MD Jun 10, 2018 06:28
[2018-06-10] MEDS ORDERED: ALBU8.5H8 INH (07:06)
== END 2018-06-10 03:50 | disposition home or self-care (01) ==
LOC: OBT 03:30 → L-D 03:30 → OBT 03:50
PROVIDERS: ATTEND Obstetrics & Gynecology
DX: O26.893 Other specified pregnancy related conditions, third trimester (principal); R10.9 Unspecified abdominal pain; O99.513 Diseases of the respiratory system complicating pregnancy, third trimester; J45.909 Unspecified asthma, uncomplicated; R05 Cough; Z3A.28 28 weeks gestation of pregnancy
CPT/HCPCS: 76705; 76817; 76818; 81001; 85025; Z7500; 81003; G0463

== ENCOUNTER 2018-06-10 05:54 | Emergency (ER) | payer MEDICAID ==
[~2018-06-10] VITALS: Ht 152.4 cm; Wt 84.8 kg
[~2018-06-10 05:54] MED LIST changes: +GUAI5SYR2 PO
[2018-06-10 05:59] VITALS: Ht 152.4 cm; Wt 84.8 kg
[2018-06-10] MEDS ORDERED: ALBU8.5H8 INH (07:06)
[2018-06-10 07:22] VITALS: BP 96/53; PULSE 85; RESP 18
--- NOTE | 2018-06-12 07:39 | ERD ---
ER Documentation Chief Complaint Chief Complaint C/O PRODUCTIVE COUGH X1.5MONTHS, THROAT PAIN LAST NIGHT, DIZZINESS, AP HPI 27-year-old female presenting with productive cough times 1.5 months. She has had a sore throat. Denies any fevers. Took amoxicillin and Z-Andrew with prednisone and inhaler. Patient is also using Robitussin-DM with no alleviation. Medical history is asthma. NKDA. Surgical history . Social history denies ROS All systems reviewed and are negative except as per history of present illness. Medications Home Meds Active Scripts Albuterol Sulfate* (Proair HFA*) 8.5 Gm Hfa.aer.ad, 2 PUFF INH Q4, #1 INHALER Prov:ADDIE LOPEZ PA-C 06/10/18 Prednisone* (Prednisone*) 20 Mg Tab, 40 MG PO DAILY for 4 Days, TAB Prov:BOB REYES MD 06/07/18 Albuterol Sulfate* (Ventolin HFA*) 18 Gm Hfa.aer.ad, 2 PUFF INHALATION Q4H, #1 INHALER Prov:BOB REYES MD 06/07/18 Albuterol Sulfate* (Proair HFA*) 8.5 Gm Hfa.aer.ad, 2 PUFF INH Q4H PRN for WHEEZING AND SOB, #1 INHALER Prov:LEELEE SAEED NP 02/02/16 Reported Medications Guaifenesin-Dextromethorphan* (Robitussin* DM) 100MG/10MG/5ML Syrup, 5 ML PO Q4H PRN for COUGH, ML 06/10/18 [id number] ( 19) 1 Each Tablet, 1 TAB PO DAILY, TAB 06/04/18 Allergies Allergies: Coded Allergies: Bee Sting Kit (Verified Allergy, Mild, 03/28/16) No Known Drug Allergies (Verified Allergy, Unknown, 03/28/16) PMhx/Soc Medical and Surgical Hx: pt denies Medical Hx, pt denies Surgical Hx History of Surgery: No Anesthesia Reaction: No Hx Neurological Disorder: No Hx Respiratory Disorders: Yes (ASTHMA "ONLY SINCE BECOMING ") Hx Cardiac Disorders: No Hx Psychiatric Problems: No Hx Miscellaneous Medical Probl: No Hx Alcohol Use: No Hx Substance Use: No Hx Tobacco Use: No Smoking Status: Never smoker FmHx Family History: No diabetes, No coronary disease, No other Physical Exam Vitals Vital Signs Date Temp Pulse Resp B/P (MAP) Pulse Ox O2 O2 Flow FiO2 Time Delivery Rate 06/10/18 98.5 85 18 96/53 (67) 97 Room Air 07:22 06/10/18 97.8 89 19 103/62 95 05:59 (76) Physical Exam GENERAL: The patient is well-appearing, well-nourished, in no acute distress HEENT: Atraumatic. Conjunctivae are pink. Pupils equal, round, and reactive to light. There is no scleral icterus. Tympanic membranes clear bilaterally. Oropharynx clear. NECK: C-spine is soft and supple. There is no meningismus. There is no cervical lymphadenopathy. CHEST: Clear to auscultation bilaterally. There are no rales, wheezes or rhonchi. HEART: Regular rate and rhythm. No murmurs, clicks, rubs or gallops. Procedures/MDM DIAGNOSTIC IMAGING REPORT Patient: TERRI VILLANUEVA : 1990 Age: 27 Sex: F MR #: [id number] DOS: 06/10/18 0619 Ordering MD: AKSHAT LOPEZ PA-C Location: [facility] Room/Bed: PROCEDURE: XR Chest. CLINICAL INDICATION: Cough TECHNIQUE: Single frontal view of the chest was obtained COMPARISON: CR CHEST 02/02/2016 FINDINGS: The heart and mediastinum are within normal limits. The lungs are clear. There is no pleural effusion or pneumothorax. RPTAT: AA IMPRESSION: No acute disease. MDM: 27-year-old female presenting with cough. I have low suspicion for respiratory distress or hypoxia. Vitals are stable and exam is non-concerning. Patient has been treated with antibiotics and chest x-ray is within normal limits. Vitals are stable and I have low suspicion for pneumonia, PE or h ypoxia. Patient is discharged with strict ER precautions and told to follow-up with primary care within 1-2 days for close evaluation. Patient is told if symptoms change or worsen to return immediately to the ER. All questions answered at discharge Departure Diagnosis: Primary Impression: Cough Condition: Stable Patient Instructions: Cough, Chronic, Uncertain Cause, (Adult) Referrals: COMMUNITY CLINICS YOU HAVE RECEIVED A MEDICAL SCREENING EXAM AND THE RESULTS INDICATE THAT YOU DO NOT HAVE A CONDITION THAT REQUIRES URGENT TREATMENT IN THE EMERGENCY DEPARTMENT. FURTHER EVALUATION AND TREATMENT OF YOUR CONDITION CAN WAIT UNTIL YOU ARE SEEN IN YOUR DOCTORS OFFICE WITHIN THE NEXT 1-2 DAYS. IT IS YOUR RESPONSIBILITY TO MAKE AN APPOINTMENT FOR FOLOW-UP CARE. IF YOU HAVE A PRIMARY DOCTOR --you should call your primary doctor and schedule an appointment IF YOU DO NOT HAVE A PRIMARY DOCTOR YOU CAN CALL OUR PHYSICIAN REFERRAL HOTLINE AT IF YOU CAN NOT AFFORD TO SEE A PHYSICIAN YOU CAN CHOSE FROM THE FOLLOWING [facility] CL[facility]ICS [facility] [address] [facility]. [facility] [address] [facility] [facility] [address] [facility] [facility] [address] [facility]. [facility] [address] [facility]. [facility] [address] Additional Instructions: FOLLOW UP WITH YOUR PRIMARY CARE PHYSICIAN TOMORROW.Return to this facility if you are not improving as expected. ADDIE LOPEZ PA-C Jun 12, 2018 07:39
== END 2018-06-10 07:22 | disposition home or self-care (01) ==
LOC: FTE 05:54
DX: R05 Cough (principal)
CPT/HCPCS: 71045; Z7502

== ENCOUNTER 2018-08-08 14:17 | Outpatient (CLI) | payer MEDICAID ==
[~2018-08-08] VITALS: Ht 152.4 cm; Wt 87.2 kg
[2018-08-08 14:46] VITALS: Ht 152.4 cm; Wt 87.2 kg
[2018-08-08 14:47] VITALS: BP 111/56; PULSE 72; RESP 16
--- NOTE | 2018-08-08 17:44 | PN ---
Triage Information Date/Time August 08, 2018 Reason for visit: Sent in from clinic for antepartum testing because of mildly elevated balances Weeks of Gestation 36 weeks and 3 days /Para 8 para 1 Diabetes: none Hypertention: none Objective Vital Signs Date Temp Pulse Resp B/P (MAP) Pulse Ox O2 O2 Flow FiO2 Time Delivery Rate 08/08/18 98.2 72 16 111/56 98 Room Air 14:47 (74) Heart Rate: 140's Heart Rate Comments Reactive Exam Deferred Results/Medications Imaging Results Normal biophysical profile. Disposition: Discharge Assessment/Plan Will repeat antepartum testing in 3 days Steroids were given JAMES KHAN MD Aug 08, 2018 17:44
[2018-08-08] MEDS ORDERED: BETAMET NA PHOS/AC(6 MG/ML) 2 ML INJ SYG IM ONE (18:00)
== END 2018-08-08 18:55 | disposition home or self-care (01) ==
LOC: OBT 14:17 → L-D 14:19 → OBT 18:55
PROVIDERS: ATTEND Obstetrics & Gynecology
DX: Z36.2 Encounter for other antenatal screening follow-up (principal)
CPT/HCPCS: 76815; 76818; J0702; Z7500; G0463

== ENCOUNTER 2018-08-11 18:58 | Outpatient (CLI) | payer MEDICAID ==
[~2018-08-11] VITALS: Ht 152.4 cm; Wt 88.0 kg
[2018-08-11 19:06] VITALS: Ht 152.4 cm; Wt 88.0 kg
--- NOTE | 2018-08-11 21:47 | TRIAGE ---
OB Triage Datetime Report Generated by CPN: 08/11/2018 21:46 Datetime: 08/11/2018 19:25 Maternal Assessment Level of Consciousness: Fully Conscious DTR's/Clonus: DTRs 1+ Headache: Denies Blurred Vision: No Respiratory Effort: Unlabored Breath Sounds, Left: Clear and Equal Breath Sounds, Right: Clear and Equal Nausea/Vomiting: Denies RUQ Epigastric Pain: Denies Facial Edema: None Labor Evaluation Frequency: NONE Monitor Mode: External Resting Tone [place]: Relaxed Heart Rate FHR Baseline Rate: 135 Monitor Mode: External US Variability: Moderate 6-25 bpm Accelerations: 15X15 Decelerations: None Category: Category I Pain Assessment Pain Scale: 0 Pain Presence: None/Denies Pain Type: N/A Pain Goal: 3 Vaginal Exam Membrane Status: Intact Datetime: 08/11/2018 19:00 Assessment Type: Triage Maternal Assessment Level of Consciousness: Fully Conscious DTR's/Clonus: DTRs 2+; No Clonus Headache: Denies Blurred Vision: No Respiratory Effort: Unlabored; Regular Rhythm; Equal Expansion Breath Sounds, Left: Clear and Equal Breath Sounds, Right: Clear and Equal Nausea/Vomiting: Denies RUQ Epigastric Pain: Denies Lower Extremities Edema: None Degree: None Upper Extremities Edema: None Degree: None Facial Edema: None Fall Risk Assessment History of Falling: (0) No Secondary Diagnosis: (0) No Ambulatory Aid: (0) Bedrest/Nurse Assist IV Therapy: (0) No Gait: (0) Normal/Bedrest/Immobile Mental Status: (0) Oriented to Own Ability Datetime: 08/11/2018 18:49 Time of Arrival: 08/11/2018 18:49 Arrived By: Ambulatory Arrived From: Home Chief Complaint: PT CAME IN FROM HOME FOR NST AND BPP FOR CHOLESTASIS Movement: Present Contractions: Denies/Absent Rupture of Membranes: Denies Vaginal Discharge: Denies Recent Sexual Intercouse: Denies Abdominal Trauma: Not Applicable Additional Patient Complaints: NONE Time Provider Notified: 08/11/2018 20:30 Provider Notified: Dr Cano Initial Plan: NST AND BPP Datetime: 08/08/2018 16:23 Comments: DR. WALLACE WILL COME AND EVALUATE PATIENT Datetime: 08/08/2018 14:56 Stage of : OB Triage Assessment Type: Triage Maternal Assessment Level of Consciousness: Fully Conscious DTR's/Clonus: DTRs 2+; No Clonus Headache: Denies Blurred Vision: No Respiratory Effort: Unlabored; Regular Rhythm; Equal Expansion Breath Sounds, Left: Clear and Equal Breath Sounds, Right: Clear and Equal Nausea/Vomiting: Denies RUQ Epigastric Pain: Denies Lower Extremities Edema: None Degree: None Upper Extremities Edema: None Degree: None Facial Edema: None Temperature Route: Oral Fall Risk Assessment History of Falling: (0) No Secondary Diagnosis: (0) No Ambulatory Aid: (0) Bedrest/Nurse Assist IV Therapy: (0) No Gait: (0) Normal/Bedrest/Immobile Mental Status: (0) Oriented to Own Ability Fall Score: 0 Fall Risk Score Definition: No Risk: No action required Monitor Mode: External Monitor Mode: External US Datetime: 06/10/2018 06:21 Time of Arrival: 08/08/2018 14:10 EGA: 36.3 Arrived By: Ambulatory Arrived From: Dr. Owens Chief Complaint: SENT FROM CLINIC Movement: Present Contractions: Denies/Absent Rupture of Membranes: Denies Vaginal Bleeding: None Vaginal Discharge: Denies Recent Sexual Intercouse: Denies Abdominal Trauma: Not Applicable Patient Complaints: Other Time Provider Notified: 08/08/2018 16:04 Provider Notified: DR. WALLACE Initial Plan: NST BPP Datetime: 06/10/2018 05:42 Labor Evaluation Frequency: NONE Monitor Mode: External Resting Tone [place]: Relaxed Heart Rate FHR Baseline Rate: 135 Monitor Mode: External US Variability: Moderate 6-25 bpm Accelerations: 15X15 Decelerations: None Category: Category I Datetime: 06/10/2018 05:00 Labor Evaluation Frequency: NONE Monitor Mode: External Resting Tone [place]: Relaxed Heart Rate FHR Baseline Rate: 145 Monitor Mode: External US Variability: Moderate 6-25 bpm Accelerations: 10X10 Decelerations: None Comments: SOME LOSS OF CONTACT DUE TO PT COUGHING Datetime: 06/10/2018 04:04 Comments: UNABLE TO KEEP BABY ON MONITOR PT CONTINUOUSLY COUGHING Datetime: 06/10/2018 03:48 Vaginal Exam Membrane Status: Intact Datetime: 06/10/2018 03:40 Stage of : OB Triage Assessment Type: Triage Maternal Assessment Level of Consciousness: Fully Conscious DTR's/Clonus: DTRs 2+; No Clonus Headache: Denies Blurred Vision: No Respiratory Effort: Labored; Regular Rhythm; Equal Expansion Breath Sounds, Left: Wheezes Breath Sounds, Right: Wheezes Nausea/Vomiting: Denies RUQ Epigastric Pain: Denies Lower Extremities Edema: None Degree: None Upper Extremities Edema: None Degree: None Facial Edema: None Temperature Route: Oral Fall Risk Assessment History of Falling: (0) No Secondary Diagnosis: (0) No Ambulatory Aid: (0) Bedrest/Nurse Assist IV Therapy: (0) No Gait: (0) Normal/Bedrest/Immobile Mental Status: (0) Oriented to Own Ability Fall Score: 0 Fall Risk Score Definition: No Risk: No action required Contraction Comments: TOCO APPLIED Comments: US APPLIED Pain Assessment Pain Scale: 9 Pain Presence: Constant Pain Type: Ache Pain Location: Abdomen Datetime: 06/10/2018 03:38 Time of Arrival: 06/10/2018 03:30 EGA: 28.0 Arrived By: Wheelchair Arrived From: Emergency Dept Chief Complaint: PT PRESENTS TO TRIAGE WITH GENERALIZED ABDOMINAL PAIN THAT IS CONSTANT; PT HAS COU GH AND STATES SHE HAS HAD THE COUGH FOR ABOUT A MONTH AND IS TAKING ROBITUSSIM DM Movement: Present Contractions: Denies/Absent Rupture of Membranes: Denies Vaginal Bleeding: None Vaginal Discharge: Denies Recent Sexual Intercouse: Denies Abdominal Trauma: Not Applicable Patient Complaints: Other Initial Plan: EFM Datetime: 06/04/2018 18:11 Fall Score: 0 Fall Risk Score Definition: No Risk: No action required Datetime: 06/04/2018 18:08 EGA: 27.1
--- NOTE | 2018-08-11 22:36 | PN ---
Triage Information Date/Time Reason for visit: Patient is here for NST and BPP Weeks of Gestation 28-year-old 8 para 1 at 36 weeks and 6 days of gestation with estimated date of delivery September 02, 2018 Patient has cholestasis of and here for NST and BPP She reports positive movement, denies vaginal bleeding and leaking fluid, denies uterine contractions Patient is currently scheduled for induction on August 14, 2018 /Para 8 para 1 Diabetes: none Hypertention: none Additional information Cholestasis of currently on Actigall Objective Heart Rate: 140's Heart Rate Comments heart rate tracing category 1 Contractions: None Results/Medications Imaging Results PROCEDURE: Biophysical profile. CLINICAL INDICATION: Pelvic pain. TECHNIQUE: Multiple sonographic images of the pelvis were obtained with transabdominal technique. COMPARISON: 08/08/2018. FINDINGS: There is a single living intrauterine gestation with the fetus in a vertex position. The placenta is anterior in location, grade II. heart tones of 152 beats per minute are identified. There is normal amniotic fluid volume with an DEV of 10.4 cm. breathing movements = 2 Gross body movements = 2 tone = 2 Qualitative AFV = 2 IMPRESSION: Biophysical profile 8 out of 8. .Olegario Del Cid MD, Date Time Electronically viewed and signed by .Olegario Del Cid MD, MD on 08/11/2018 20:16 .T/ CC: JAMES KHAN MD [phone] Disposition: Discharge Assessment/Plan kick count instructions were given Labor precautions were given Patient instructed to return in 48 hours on Sunday for induction of labor BHARTI MARTÍNEZ MD Aug 11, 2018 22:36
== END 2018-08-11 20:55 | disposition home or self-care (01) ==
LOC: OBT 18:58 → L-D 19:03 → OBT 20:55
PROVIDERS: ATTEND Obstetrics & Gynecology
DX: O36.8330 Maternal care for abnormalities of the fetal heart rate or rhythm, third trimester, not applicable or unspecified (principal); O26.613 Liver and biliary tract disorders in pregnancy, third trimester; K83.1 Obstruction of bile duct; Z3A.36 36 weeks gestation of pregnancy
CPT/HCPCS: 76818; Z7500; G0463

== ENCOUNTER 2018-08-13 15:14 | Inpatient (IN) | payer MEDICAID ==
[~2018-08-13] VITALS: Ht 152.4 cm; Wt 87.9 kg
[~2018-08-13 15:14] MED LIST changes: -ALBU18HF INHALATION; -GUAI5SYR2 PO
[2018-08-13 15:46] VITALS: Ht 152.4 cm; Wt 87.9 kg
[2018-08-13 15:49] VITALS: BP 117/64; PULSE 96; RESP 20
[2018-08-13] MEDS ORDERED: METHYLERGONOVINE 0.2 MG INJ IM PRN (16:00)
[2018-08-13] MEDS ORDERED: OXYCODONE/ASPIRIN (4.88/325) TAB PO PRN (16:00)
[2018-08-13] MEDS ORDERED: CARBOPROST 250 MCG INJ IM PRN (16:00)
[2018-08-13] MEDS ORDERED: IBUPROFEN 600 MG TAB PO PRN (16:00)
[2018-08-13] MEDS ORDERED: MISOPROSTOL 200 MCG TAB PR PRN (16:00)
[2018-08-13] MEDS ORDERED: BUTORPHANOL 2 MG INJ IV PRN (16:00)
[2018-08-13] MEDS ORDERED: OXYTOCIN 30 UNITS/LR 500 ML IV PRN (16:00)
[2018-08-13] MEDS ORDERED: OXYTOCIN 30 UNITS/LR 500 ML IV SCH ×2 (16:00)
[2018-08-13] MEDS ORDERED: LIDOCAINE 1% (MPF) 30 ML INJ INJ PRN (16:00)
[2018-08-13] MEDS ORDERED: URSO300C3 PO (16:01)
[2018-08-13] MEDS: MISOPROSTOL 50 MCG CAPSULE PO SCH ×2 (17:42→21:44)
[2018-08-13] MEDS: LACTATED RINGER'S 1,000 ML IV SCH (17:42)
--- NOTE | 2018-08-13 18:53 | HP ---
Date/Time of Note Date/Time of Note DATE: 08/13/18 TIME: 18:47 OB - History Hx of Present Free Text/Dictation 28-year-old female 8 para 1 AB 6 at 37 weeks gestation admitted for induction of labor because of mild elevation of bilateral Last Menstrual Period: Nov 26, 2017 Estimated Due Date: Sep 02, 2018 : 8 Para: 1 Therapeutic : 6 Care: Good Care Ultrasounds: Normal mid trimester US Obstetrical Complications: None Medical Complications: None Past Family/Social History * Past Medical, Surgical, Family and Obstetric Histories reviewed from chart. Blood Type: A+ Rubella: immune RPR/VDRL: Negative GBS Status: Negative HBsAG: Negative OB Admission Exam Vital Signs Vital Signs Vital Signs Date Temp Pulse Resp B/P (MAP) Pulse Ox O2 O2 Flow FiO2 Time Delivery Rate 08/13/18 98.6 96 20 117/64 Room Air 15:49 (81) Physical Exam HEENT: WNL Heart: Rhythm Normal Lungs: Clear, Equal Abdomen: WNL Extremities: Normal Reflexes: Normal Cervical Dilatation: 1cm Effacement: 0% Station: -3 Membranes: Intact Heart Rate: 140's Accelerations: Accelerations Present Decelerations: No Decelerations Varibility: Marked Contractions on Admission: None Last 72 hours Lab Results CBC & BMP 08/13/18 17:33 OB Assessment/Plan Other Assessment: 37 weeks gestation Cholestasis of the Other plan: Start induction using Cytotec JAMES KHAN MD Aug 13, 2018 18:53
[2018-08-13] MEDS ORDERED: ALBUTEROL HFA 8 GM INHALER INH PRN (20:00)
[2018-08-13] MEDS: URSODIOL 300 MG CAP PO SCH (20:42)
[2018-08-14] MEDS: MISOPROSTOL 50 MCG CAPSULE PO SCH (02:46)
[2018-08-14] MEDS: LACTATED RINGER'S 1,000 ML IV SCH ×4 (04:46→21:08)
[2018-08-14] MEDS ORDERED: FENTAnyl 2MCG/ML-ROPIV 0.2% 100 ML ONE (09:12)
--- NOTE | 2018-08-14 09:15 | PREAC ---
Date/Time of Note Date/Time of Note DATE: 08/14/18 TIME: 09:14 Anesthesia Eval and Record Evaluation Time Pre-Procedure Interview DATE: 08/14/18 TIME: 09:14 Age 28 Sex female NPO: 8 hrs Preoperative diagnosis LABOR PAIN Planned procedure LABOR EPIDURAL Past Medical History Past Medical History: Includes Cardio: HTN : : (8), Para: (1), Gestational age: (37 2/7 WEEKS) Surgery & Anesthesia Issues No known issue Meds Anticoagulation: No Beta Summer within 24 hr: No Reason Beta Summer not given: Pt. not on B-Summer Active Scripts Albuterol Sulfate* (Proair HFA*) 8.5 Gm Hfa.aer.ad, 2 PUFF INH Q4, #1 INHALER Prov:ADDIE LOPEZ PA-C 06/10/18 Reported Medications Ursodiol* (Ursodiol*) 300 Mg Capsule, 300 MG PO BID, CAP 08/13/18 [id number] ( 19) 1 Each Tablet, 1 TAB PO DAILY, TAB 06/04/18 Current Medications Lactated Ringer's 1,000 ml @ 125 mls/hr Q8H IV Last administered on 08/14/18at 04:47; Admin Dose 125 MLS/HR; Start 08/13/18 at 15:51 Butorphanol Tartrate (Stadol) 2 mg Q2H PRN IV .PAIN SCALE 6-10; Start 08/13/18 at 16:00 Lidocaine (Xylocaine 1% (Mpf)) 30 ml ONCE PRN INJ .EPISIOTOMY; Start 08/13/18 at 16:00 Oxytocin/Lactated Ringer's 500 ml @ 500 mls/hr ONCE POST IV ; Start 08/13/18 at 16:00 Oxytocin/Lactated Ringer's 500 ml @ 125 mls/hr POST IV ; Start 08/13/18 at 16:00 Ibuprofen (Motrin) 600 mg ONCE PRN PO .PAIN 1-5; Start 08/13/18 at 16:00 Oxycodone/Aspirin (Percodan) 2 tab ONCE PRN PO .PAIN 6-10; Start 08/13/18 at 16:00 Lactated Ringer's 1,000 ml @ 2,000 mls/hr Q30M PRN IV .ANESTHESIA; Start 08/13/18 at 15:51 Oxytocin/Lactated Ringer's 500 ml @ 0 mls/hr ONCE PRN IV .VAGINAL BLEEDING; Start 08/13/18 at 16:00 Methylergonovine Maleate (Methergine) 0.2 mg ONCE PRN IM .VAGINAL BLEEDING; Start 08/13/18 at 16:00 Carboprost Tromethamine (Hemabate) 250 mcg ONCE PRN IM .VAGINAL BLEEDING; Start 08/13/18 at 16:00 Misoprostol (Cytotec) 1,000 mcg ONCE PRN MT .VAGINAL BLEEDING; Start 08/13/18 at 16:00 Misoprostol (Cytotec 50 Mcg Capsule) 50 mcg Q4 PO Last administered on 08/14/18at 02:46; Admin Dose 50 MCG; Start 08/13/18 at 17:30 Ursodiol (Actigall) 300 mg TID PO Last administered on 08/13/18at 20:42; Admin Dose 300 MG; Start 08/13/18 at 21:00 Albuterol (Ventolin Hfa) 2 puff Q4H RESP THERAPY PRN INH SHORTNESS OF BREATH; Start 08/13/18 at 20:00 Meds reviewed: Yes Allergies Coded Allergies: Bee Sting Kit (Verified Allergy, Mild, 08/11/18) No Known Drug Allergies (Verified Allergy, Unknown, 08/11/18) Allergies Reviewed: Yes Labs/Studies Labs Reviewed: Reviewed by anesthesiologist Result Diagram: 08/13/18 1733 Laboratory Tests 08/13/18 17:33 Blood Bank Test 08/13/18 17:33 Antibody Screen NEGATIVE Blood Type A POSITIVE Rh Immune Globulin Candidate NO test: N/A Pre-procedure Exam Last vitals Vital Signs Date Temp Pulse Resp B/P (MAP) Pulse Ox O2 O2 Flow FiO2 Time Delivery Rate 08/13/18 98.6 96 20 117/64 Room Air 15:49 (81) Airway: Adequate mouth opening, Adequate thyromental dist Mallampati: Mallampati II Teeth: Normal Lung: Normal Heart: Normal ASA Physical Status ASA physical status: 2 Emergency: None Planned Anesthetic Neuraxial: Epidural Planned Pain Management Epidural Pre-operative Attestations Prior to commencing anesthesia and surgery, the patient was re-evaluated, there was verification of: *The patient's identity *The results of appropriate recent lab work and preoperative vital signs *The above evaluation not changing prior to induction *Anesthetic plan, risk benefits, alternative and complications discussed with patient/family; questions answered; patient/family understands, accepts and wishes to proceed. Enmanuel Ruiz M.D. Aug 14, 2018 09:15
[2018-08-14] MEDS: LACTATED RINGER'S 1,000 ML IV PRN (09:18)
[2018-08-14] MEDS ORDERED: TRIMETHOBENZAMIDE 100 MG/ML VIAL IM PRN (09:30)
[2018-08-14] MEDS ORDERED: DIPHENHYDRAMINE 50 MG INJ IV PRN (09:30)
[2018-08-14] MEDS ORDERED: NALOXONE (0.4 MG/ML) INJ IV PRN (09:30)
[2018-08-14] MEDS: URSODIOL 300 MG CAP PO SCH ×3 (09:38→21:07)
--- NOTE | 2018-08-14 09:52 | PAC ---
Date/Time of Note Date/Time of Note DATE: 08/14/18 TIME: 09:52 Post-Anesthesia Notes Post-Anesthesia Note Last documented vital signs Vital Signs Date Temp Pulse Resp B/P (MAP) Pulse Ox O2 O2 Flow FiO2 Time Delivery Rate 08/13/18 98.6 96 20 117/64 Room Air 15:49 (81) Activity: WNL Respiratory function: WNL Cardiovascular function: WNL Mental status: Baseline Pain reasonably controlled: Yes Hydration appropriate: Yes Nausea/Vomiting absent: Yes Enmanuel Ruiz M.D. Aug 14, 2018 09:52
[2018-08-14] MEDS: OXYTOCIN 30 UNITS/LR 500 ML IV SCH (10:18)
[2018-08-14] MEDS: FENTAnyl 2MCG/ML-ROPIV 0.2% 100 ML BAG EPI SCH ×2 (15:54→23:42)
--- NOTE | 2018-08-14 18:53 | PN ---
Date/Time of Note Date/Time of Note DATE: 08/14/18 TIME: 18:52 OB Subjective Subjective Subjective Currently has epidural and feels comfortable OB Objective Objective Objective Stable as well as general physical exam Cervix is 50% 2-3 -2 intact OB Assessment/Plan Reason for admission: induction of labor Other Assessment: Cholestasis of at 37 weeks plus Other plan: Continue with Pitocin augmentation Break after 12-hour of Pitocin augmentation and restart within few hours JAMES KHAN MD Aug 14, 2018 18:53
[2018-08-15] MEDS: OXYTOCIN 30 UNITS/LR 500 ML IV SCH (01:34)
[2018-08-15] MEDS: LACTATED RINGER'S 1,000 ML IV SCH ×2 (04:28→13:44)
[2018-08-15] MEDS: FENTAnyl 2MCG/ML-ROPIV 0.2% 100 ML BAG EPI SCH ×2 (06:05→11:23)
[2018-08-15] MEDS ORDERED: TERBUTALINE 1 ML ONE (08:58)
[2018-08-15] MEDS ORDERED: TERBUTALINE 1 MG/ML INJ SC ONE (09:00)
[2018-08-15] MEDS: URSODIOL 300 MG CAP PO SCH ×2 (09:00→13:47)
[2018-08-15] MEDS: LACTATED RINGER'S 1,000 ML IV PRN (09:05)
[2018-08-15] MEDS ORDERED: MINERAL OIL LIGHT 10 ML VIAL TOP ONE (10:00)
[2018-08-15] MEDS ORDERED: DIPHENOXYLATE/ATROPINE TAB PO ONE (17:30)
[2018-08-15] MEDS ORDERED: ONDANSETRON 4 MG INJ ONE (17:41)
[2018-08-15] MEDS: ONDANSETRON 4 MG INJ IV PRN (17:43)
[2018-08-15] MEDS ORDERED: KETOROLAC 30 MG INJ IV STA (18:04)
[2018-08-15] MEDS ORDERED: ACETAMINOPHEN 500 MG TAB PO STA (18:04)
--- NOTE | 2018-08-15 18:04 | LDN ---
Date/Time of Note Date/Time of Note DATE: 08/15/18 TIME: 18:02 Delivery Summary Normal spontaneous vaginal delivery of a viable over intact perineum Weeks of Gestation 37+ weeks Placenta Delivered: Spontaneously, Intact & Complete Meconium: none Episiotomy: No Perineal laceration: 1 Laceration repair: Superficial perineal laceration was repaired using running stitches of 2-0 chromic on a small half needle Superficial labia minora laceration was also repaired using 4-0 chromic on a small half needle Anesthesia type: Epidural Estimated blood loss: 300 Sponge & Needle done & correct: Yes All needle counts correct: Yes Any foreign bodies felt in the: No Delivery Information Sex Sex: female Apgars 1 Minute: 9 5 Minute: 9 Suctioning Nose & mouth suctioned at hedy: Yes Delee suction performed: No Umbilical Cord Umbilical cord with: 3 Vessels Cord presentations: nuchal cord Nuchal cord present X: 1 Cord Blood was obtained: Yes Mother & Baby Disposition Disposition Mom & Baby to Maternity; Good: Yes (Mother and baby were recovered in good condition) Mom transferred to: Other (Maternity) Baby to NICU: No JAMES KHAN MD Aug 15, 2018 18:04
[2018-08-15 20:30] VITALS: BP 106/52; PULSE 59; RESP 18
[2018-08-15] MEDS ORDERED: WITCH HAZEL/GLYCERIN PAD PR PRN (20:30)
[2018-08-15] MEDS ORDERED: METHYLERGONOVINE 0.2 MG INJ IM PRN (20:30)
[2018-08-15] MEDS ORDERED: BENZOCAINE 20% 56 ML SPRAY TOP PRN (20:30)
[2018-08-15] MEDS ORDERED: DIBUCAINE 1% 30 GM OINT TOP PRN (20:30)
[2018-08-15] MEDS ORDERED: MISOPROSTOL 200 MCG TAB PR PRN (20:30)
[2018-08-15] MEDS ORDERED: ZOLPIDEM 5 MG TAB PO PRN (20:30)
[2018-08-15] MEDS ORDERED: CARBOPROST 250 MCG INJ IM PRN (20:30)
[2018-08-15] MEDS ORDERED: OXYTOCIN 30 UNITS/LR 500 ML IV PRN (20:30)
[2018-08-15] MEDS ORDERED: LANOLIN HPA 1 PKT TOP PRN (20:30)
[2018-08-15] MEDS ORDERED: HYDROCODONE/APAP (5/325) TAB PO PRN ×2 (20:30)
[2018-08-15] MEDS: MAGNESIUM HYDROXIDE 30ML CUP PO SCH (21:00)
[2018-08-15] MEDS: SENNA/DOCUSATE NA (8.6MG/50MG) TAB PO SCH (21:00)
[2018-08-15] MEDS: ALBUTEROL HFA 8 GM INHALER INH SCH (21:30)
[2018-08-16] MEDS: CEPHALEXIN 500 MG CAP PO SCH ×4 (00:05→17:59)
[2018-08-16 00:15] VITALS: BP 88/52; PULSE 71; RESP 18
[2018-08-16] MEDS: ALBUTEROL HFA 8 GM INHALER INH SCH ×6 (00:39→17:00)
[2018-08-16 04:20] VITALS: BP 103/54; PULSE 74; RESP 18
[2018-08-16] MEDS: IBUPROFEN 600 MG TAB PO SCH ×4 (05:33→18:00)
[2018-08-16] MEDS: LACTATED RINGER'S 1,000 ML IV* SCH ×2 (07:00→12:13)
[2018-08-16 08:15] VITALS: BP 97/50; PULSE 70; RESP 18
[2018-08-16] MEDS: SENNA/DOCUSATE NA (8.6MG/50MG) TAB PO SCH ×2 (09:00→21:00)
[2018-08-16] MEDS: MAGNESIUM HYDROXIDE 30ML CUP PO SCH ×2 (09:00→21:00)
--- NOTE | 2018-08-16 10:30 | DS ---
Date/Time of Note Date/Time of Note Home today or next day DATE: 08/16/18 TIME: 10:29 Obstetrical Discharge Record Final Diagnosis Final Diagnosis: Term delivered Other Final Diagnosis Status post vaginal delivery Vaginal Delivery Obstetrical Delivery: Spontaneous, Laceration, Repaired Complications Augmentation: Yes Induction: Yes Condition on Discharge Physical Assessment Last Vitals: See nurse's notes Voiding: Yes Bowel Movement: Yes Breast: Soft, non-tender, Filling Fundus: Firm Abdomen and Incision: Abdomen is soft with firm fundus Episiotomy: Perineum is healing well and appears clean Calf Tenderness: No Patient Condition: Good JAMES KHAN MD Aug 16, 2018 10:30
--- NOTE | 2018-08-16 10:31 | PD.PPDC ---
[employer]SULT[employer] Discharge Instruction Provider Information Physician Information 28-year-old female had induction of labor at 37+ weeks with subsequent vaginal delivery Diagnosis [id number] Final Diagnosis: Hptqg7m Status post vaginal delivery Condition [id number] Patient Condition: Yhscu5j Good Diet Snzom5Jo Diet: Fogbw8m Resume Regular Diet Activity/Restrictions [id number] Activity: Cspbp0q Normal Activity May Shower Nghru7Eo Restrictions: Gtzlt2l Nothing in the Vagina [id number] Return to Work or School: [employer] Sep 30, 2018 Follow-up Follow-up with Physician: 2, 4, Week/Weeks Return to clinic for Ivhue4Py OB Instructions: [id number] Breast Tenderness (In clinic) Depression Comment: Pelvic rest for 6 weeks JAMES KHAN MD Aug 16, 2018 10:31
[2018-08-16] MEDS ORDERED: IBUP-1542 PO (10:32)
[2018-08-16 16:00] VITALS: BP 100/60; PULSE 72; RESP 18
[2018-08-16 20:00] VITALS: BP 100/53; PULSE 81; RESP 18
[2018-08-17] MEDS: IBUPROFEN 600 MG TAB PO SCH ×3 (00:01→12:30)
[2018-08-17] MEDS: ALBUTEROL HFA 8 GM INHALER INH SCH ×4 (01:00→13:00)
[2018-08-17 04:06] VITALS: BP 111/52; PULSE 77; RESP 18
[2018-08-17] MEDS: CEPHALEXIN 500 MG CAP PO SCH ×3 (05:36→12:29)
[2018-08-17 08:15] VITALS: BP 112/59; PULSE 64; RESP 18
[2018-08-17] MEDS ORDERED: MEASLES,MUMPS,RUBELLA VACCINE INJ SC* ONE (09:00)
[2018-08-17] MEDS: SENNA/DOCUSATE NA (8.6MG/50MG) TAB PO SCH (09:00)
[2018-08-17] MEDS ORDERED: VARICELLA VACCINE LIVE/PF 1,350 UNIT/0.5 ML ML SC* ONE (09:00)
[2018-08-17] MEDS: MAGNESIUM HYDROXIDE 30ML CUP PO SCH (09:00)
[2018-08-17] MEDS ORDERED: DIPHTH/TET/ACEL PERTUSS (ADULT) 0.5 ML VIAL IM* ONE (09:00)
[2018-08-17] MEDS ORDERED: IBUP-1542 PO (13:44)
--- NOTE | 2018-08-18 15:30 | DELSUM ---
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 Babies in Womb: 1 Attempted: No Labor Anesthesia: Epidural LABOR INFORMATION Reason for Induction: Other Reason for Induction- Other: choliostasis Onset of Labor: 08/14/2018 09:00 Complete Dilatation: 08/15/2018 16:00 Cervical Ripening Agents: Cytotec @ Oxytocin: Induction Group B Beta Strep: Negative Steroids Given: None Reason Steroids Not Administered: Not Applicable MEMBRANES Membranes Rupture Method: Artificial Rupture of Membranes: 08/15/2018 10:02 Length of Rupture (hr): 7.10 Amniotic Fluid Color: Bloody Amniotic Fluid Amount: Moderate Amniotic Fluid Odor: Normal STAGES OF LABOR Stage 1 hr: 31 Stage 1 min: 0 Stage 2 hr: 1 Stage 2 min: 8 Stage 3 hr: 0 Stage 3 min: 2 Total Time in Labor hr: 32 Total Time in Labor min: 10 VAGINAL DELIVERY Episiotomy: None Laceration Extension: Second Degree Laceration Type: Perineal Initial Vag Sponge Count: 10 Final Vag Sponge Count: 10 Initial Vag Sharps Count: 2 Final Vag Sharps Count: 2 Sponge Count Correct: Yes Sharps Count Correct: Yes BABY A INFORMATION Delivery Date/Time: 08/15/2018 17:08 Method of Delivery: Vaginal Born in Route : No : N/A Forceps: N/A Vacuum Extraction: N/A Shoulder Dystocia : No SHOULDER DYSTOCIA BABY A Infant Delivery Date/Time: 08/15/2018 17:08 PRESENTATION/POSITION BABY A Presentation: Cephalic Cephalic Presentation: Vertex Vertex Position: Left Occipital Anterior Breech Presentation: N/A PLACENTA INFORMATION BABY A Placenta Delivery Time : 08/15/2018 17:10 Placenta Method of Delivery: Spontaneous Placenta Status: Delivered SCORES BABY A Heart Rate 1 min: >100 bpm Resp Effort 1 min: Good Cry Reflex Irritability 1 min: Cough/Sneeze/Pulls Away Muscle Tone 1 min: Active Motion Color 1 min: Body Lorton, Extremit Blue Resuscitation Effort 1 min: Tactile Stimulation; Oxygen SCORE 1 MIN: 9 Heart Rate 5 min: >100 bpm Resp Effort 5 min: Good Cry Reflex Irritability 5 min: Cough/Sneeze/Pulls Away Muscle Tone 5 min: Active Motion Color 5 min: Body Lorton, Extremit Blue Resuscitation Effort 5 min: Tactile Stimulation; Oxygen SCORE 5 MIN: 9 INFANT INFORMATION BABY A Gestational Age at Delivery: 37.3 Gestational Status: Early Term- 37- 38.6 Weeks Infant Outcome : Liveborn Condition : Stable Infant Sex: Female IDENTIFICATION/MEDS BABY A ID Band Number: [id number] ID Band Location: Right Leg; Left Arm Sensor Number: [id number] Sensor Location : Cord Clamp Vitamin K Given : Not Given Erythromycin Given: Not Given WEIGHT/LENGTH BABY A Birthweight (gm): 2985 Infant Weight (lb): 6 Weight (oz): 9 Infant Length (in): 18.50 Infant Length (cm): 46.99 CORD INFORMATION BABY A No. 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
== END 2018-08-17 14:05 | disposition home or self-care (01) | DRG 805 ==
LOC: OBT 15:14 → L-D 15:15 → PP1 08-15 20:28
PROVIDERS: ADMIT Obstetrics & Gynecology; ATTEND Obstetrics & Gynecology
PROC: 10E0XZZ Delivery of Products of Conception, External Approach (ICD-10-PCS; principal; 2018-08-14)
PROC: 0HQ9XZZ Repair Perineum Skin, External Approach (ICD-10-PCS; 2018-08-14)
DX: O26.62 Liver and biliary tract disorders in childbirth (principal); K83.1 Obstruction of bile duct; O70.0 First degree perineal laceration during delivery; O69.81X0 Labor and delivery complicated by cord around neck, without compression, not applicable or unspecified; Z37.0 Single live birth; Z3A.37 37 weeks gestation of pregnancy
CPT/HCPCS: 62322; 80307; 81003; 85025; 85610; 85730; 86592; 86850; 86900; 86901; 87340; 90715; 90716; 99464; J1885; J2405; J2590; J3010; J3105; J7120

== ENCOUNTER 2018-08-19 20:52 | Inpatient (IN) | payer MEDICAID ==
[~2018-08-19] VITALS: Ht 152.4 cm; Wt 87.4 kg
[~2018-08-19 20:52] MED LIST changes: +IBUP-1542 PO; -PRED20TA PO
[2018-08-19 20:55] VITALS: Ht 152.4 cm; Wt 87.4 kg
[2018-08-20] VITALS (7 sets, daily range): BP systolic 122–135; BP diastolic 63–74; PULSE 53–67; RESP 18–20
[2018-08-20] MEDS ORDERED: ACETAMINOPHEN 325 MG TAB PO PRN (02:30)
[2018-08-20] MEDS ORDERED: ONDANSETRON 4 MG INJ IV PRN ×2 (02:30→03:00)
[2018-08-20] MEDS ORDERED: BISACODYL (EC) 5 MG TAB PO PRN (03:00)
[2018-08-20] MEDS ORDERED: NACL 0.9% 3 ML SYG IV SCH (03:00)
[2018-08-20] MEDS ORDERED: DOCUSATE SODIUM 100 MG CAP PO PRN (03:00)
[2018-08-20] MEDS ORDERED: ASPI1TAB21 PO (03:19)
--- NOTE | 2018-08-20 03:50 | HP ---
Date/Time of Note Date/Time of Note DATE: 08/20/18 TIME: 03:50 Assessment/Plan VTE Prophylaxis SCD applied (from Nsg): Yes Pharmacological prophylaxis: NA/contraindicated Pharm contraindication: low risk/ambulating Lines/Catheters IV Catheter Type (from Nrsg): Saline Lock Assessment/Plan Hospital Course This is a 28-year-old female being admitted to the telemetry #1 shortness of breath: Secondary to anemia, versus CHF versus other lung pathology. Will transfuse a unit of packed red blood cells. Will check an echocardiogram in the setting of elevated BNP and bilateral lower extremity edema. Patient also has sinus bradycardia on EKG of approximately 48 bpm. Chest x-ray shows a new 13 mm retrocardiac opacity, will obtain a CT of the chest to further evaluate this. #2 bilateral lower extremity edema: Concern for possible cardiomyopathy versus other. Bilateral venous Dopplers are negative for any acute DVTs. Patient does have an elevated BNP of approximately 1000. Will diurese patient with Lasix 40 mg iv x 1 and then lasix 20 mg iv bid. Insert Skinner catheter. #3 acute blood loss anemia: Patient does report vaginal clots, given her symptoms we will transfuse her 1 unit of packed red blood cell. Will consult SAMPLE WEAVER for further evaluation of patient's vaginal blood clots. Will check iron and ferritin levels. trend cbc. #4 obesity: We will check hemoglobin A1c, lipid panel, TSH #5 sinus bradycardia: This appears to be new, previous vitals trended from previous admission do not reflect this low heart rate in the 40s. Will consult cardiology. #6 DVT GI prophylaxis: SCDs, no GI prophylaxis indicated Further treatment strategy will be implemented as per the clinical course. Result Diagram: 08/19/18 2349 08/19/18 2349 Results 24hrs Laboratory Tests Test 08/19/18 23:49 White Blood Count 8.8 # Red Blood Count 2.80 L Hemoglobin 6.8 *L Hematocrit 22.1 L Mean Corpuscular Volume 78.9 L Mean Corpuscular Hemoglobin 24.3 L Mean Corpuscular Hemoglobin Concent 30.8 L Red Cell Distribution Width 14.2 Platelet Count 231 # Mean Platelet Volume 9.6 Immature Granulocytes % 0.700 H Neutrophils % 60.6 Lymphocytes % 31.3 Monocytes % 4.3 Eosinophils % 2.8 Basophils % 0.3 Nucleated Red Blood Cells % 0.7 H Immature Granulocytes # 0.060 H Neutrophils # 5.3 Lymphocytes # 2.8 Monocytes # 0.4 Eosinophils # 0.3 Basophils # 0.0 Nucleated Red Blood Cells # 0.1 H Prothrombin Time 12.4 Prothrombin Time Ratio 1.0 INR International Normalized Ratio 0.91 Activated Partial Thromboplast Time 29.7 Sodium Level 140 Potassium Level 3.2 L Chloride Level 110 Carbon Dioxide Level 23 Anion Gap 7 Blood Urea Nitrogen 17 Creatinine 0.85 Est Glomerular Filtrat Rate mL/min > 60 Glucose Level 80 Calcium Level 8.2 L Total Bilirubin 0.3 Direct Bilirubin 0.00 Indirect Bilirubin 0.3 Aspartate Amino Transf (AST/SGOT) 28 Alanine Aminotransferase (ALT/SGPT) 43 Alkaline Phosphatase 78 Troponin I < 0.012 B-Type Natriuretic Peptide 1170 H Total Protein 6.0 L Albumin 3.1 L Globulin 2.90 Albumin/Globulin Ratio 1.06 HPI/ROS Admit Date/Time Admit Date/Time Hx of Present Illness Chief complaint: Bilateral lower extremity swelling, shortness of breath This is a 28-year-old female who presented to the emergency department complaining of bilateral leg swelling, and some shortness of breath. Patient delivered via vaginal delivery on 08/15. During the surgery she did sustain a perineal laceration which was repaired. Patient reports that she went home and has noticed that she has had swelling in her bilateral legs. She did have this prior to delivery as well. However after she delivered she had improvement while in the hospital. After she went home she reports increased swelling of the bilateral legs, and tightness. She reported that is been difficult for her to ambulate. She does report at times some shortness of breath. Denies any ch est pain. She also reports that she has been having some burning while urinating as well as she has been passing a lot of blood clots. She stated that she had been passing blood clots vaginally after delivering as well. Her hemoglobin prior to delivery was 9 and after it was noted to be around 6.8 which is the same as it is today. Dr. JAMES KHAN was her delivering physician. Allergies: Bee sting Medications: None ROS Const: As per HPI Eyes : No pain discharge or redness or change in visual acuity ENT: No pain, sore throat, congestion, congestion, dysphagia or discharge Respiratory: As per HPI Cardiovascular: No chest pain, palpitation, PND, or edema GI : no change in appetite, abdominal pain, nausea, vomiting, diarrhea, constipation, or change in the color his stool Genitourinary: As per HPI Musculoskeletal: As per HPI s Skin: No rash, bruising or hives Neuro: No headache, dizziness, syncope, seizure, focal weakness Endocrine: No polyuria, polydipsia, temperature intolerance Psych: No hallucination, depression, anxiety or suicidal ideation PMH/Family/Social Past Medical History Anemia, gestational hypertension, asthma Medications Current Medications IV Flush (NS 3 ml) 3 ml PER PROTOCOL IV ; Start 08/20/18 at 03:00 Ondansetron HCl (Zofran Inj) 4 mg Q6H PRN IV NAUSEA/VOMITING; Start 08/20/18 at 03:00 Acetaminophen (Tylenol Tab) 650 mg Q6H PRN PO .PAIN 1-3 OR TEMP; Start 08/20/18 at 03:00 Docusate Sodium (Colace) 100 mg Q12H PRN PO .CONSTIPATION; Start 08/20/18 at 03:00 Bisacodyl (Dulcolax) 5 mg DAILY PRN PO .CONSTIPATION; Start 08/20/18 at 03:00 Coded Allergies: Bee Sting Kit (Unverified Allergy, Mild, 08/20/18) No Known Drug Allergies (Unverified Allergy, Unknown, 08/20/18) Past Surgical History Perineal laceration repair status post vaginal delivery Family History Significant Family History: no pertinent family hx Social History Alcohol Use: none Smoking Status: Never smoker Drug Use: none Exam/Review of Systems Vital Signs Vitals Vital Signs Date Temp Pulse Resp B/P (MAP) Pulse Ox O2 O2 Flow FiO2 Time Delivery Rate 08/19/18 50 18 100 Room Air 23:28 08/19/18 98.7 118/59 20:55 (78) Exam Exam General: Patient is a pleasant female currently lying in bed in no acute distress HEENT: Atraumatic, normocephalic. The pupils are equal, round and reactive. Extraocular motor are intact Neck: Supple with full range of motion. No rigidity or meningismus Chest: Nontender Lungs: Clear to auscultation bilaterally, no rales or wheezes noted Heart: Normal S1-S2, Regular rhythm and rate. No murmur, S3, or S4 Abdomen: Soft , nontender, nondistended , bowel sounds are present. No guarding no rebound tenderness , No masses or organomegaly. No costovertebral temporal angle mass Extremities: Bilateral nonpitting edema of the lower extremities Neurologic: Normal mental status, speech normal, cranial nerves II through XII are intact, motor and sensory are intact, Additional Comments PROCEDURE: XR Chest. CLINICAL INDICATION: Chest pain. TECHNIQUE: Single frontal view of the chest. COMPARISON: Plain film chest dated 02/02/2016. FINDINGS: The cardiomediastinal silhouette is within normal limits. Since the prior examination dated 02/02/2016 there is a new 13 mm radiopacity at the medial left lung base in the retrocardiac location. Although an interval neoplasm would be less likely in the 28-year-old female, recommend CT examination the chest for further evaluation in setting of chest pain. The lungs are otherwise clear. No signs of pleural fluid or pneumothorax are seen. The osseous structures and soft tissues are unremarkable. IMPRESSION: 1. Recommend CT examination of the chest for further evaluation of new 13 mm radiopacity at the medial retrocardiac left lung base. 2. Otherwise, no evident acute process in the chest. RPTAT: [facility] Physician Aleksey Date Time Electronically viewed and signed by Physician Aleksey on 08/20/2018 01:03 RS/ CC: TAN ALEXIS [id number] PROCEDURE: US bilateral lower extremity Venous. CLINICAL INDICATION: Lower extremity pain TECHNIQUE: Multiple sonographic images of the bilateral lower extremity deep venous system was obtained utilizing grayscale, color-flow, compressive sonography and doppler imaging with augmentation. COMPARISON: None. FINDINGS: There is normal compressibility and flow within the bilateral common femoral, deep femoral, superficial femoral, posterior tibial, peroneal and popliteal veins. IMPRESSION: No sonographic evidence for deep venous thrombosis of the right and left lower extremities. RPTAT:AAJJ Farideh Larios, Physician Date Time Electronically viewed and signed by Farideh Larios Physician on 08/20/2018 01:18 BM/ CC: TAN ALEXIS [id number] KATHIE ESCUDERO Aug 20, 2018 03:50
[2018-08-20] MEDS ORDERED: FUROSEMIDE 40 MG INJ IV ONE (05:30)
[2018-08-20] MEDS: POTASSIUM CHLORIDE (SR) 20 MEQ TAB PO SCH ×3 (06:41→21:12)
--- NOTE | 2018-08-20 09:01 | RADRPT ---
Echocardiogram Report Patient Name: Amena VILLANUEVA ID: [id number] : 1990 (28y )Study Date: 08/20/2018 7:52:25 AM Gender: FAccession #: [id number] Tech: Gladys Aguilar RDCS Location: 18 Ref.Physician: KATHIE ESCUDERO Height(Cm): BSA: Weight(Kg): Quality: AdequateOrder Physician: KATHIE ESCUDERO Account #: Procedures: Echocardiographic Report: Transthoracic echocardiogram with complete 2D, M-Mode, and doppler examination. Indications: Elevated bnp, and Shortness of breath. Measurements: 2D/M Mode Doppler Measurement Value Normal Range Measurement Value Normal Range LVIDd 2D 4.7 [ 3.8 - 5.2 ] cm AV Peak Obed 1.5 [ 100.0 - 170.0 ] cm/sec LVIDs 2D 2.5 [ 2.2 - 3.5 ] cm AV Peak PG 9.0 [ 2.0 - 9.0 ] mmHg LVPWd 2D 0.9 [ 0.6 - 0.9 ] cm LVOT Peak Obed 1.2 [ 70.0 - 110.0 ] cm/sec IVSd 2D 0.8 [ 0.6 - 0.9 ] cm LVOT Peak PG 5.0 [ 2.0 - 6.0 ] mmHg AoR Diam 2D 2.6 [ 2.3 - 3.1 ] cm MV E Peak Obed 1.2 [ 60.0 - 130.0 ] cm/sec EDV 2D 99.8 [ 46.0 - 106.0 ] ml MV A Peak Obed 0.5 [ 100.0 - 120.0 ] cm/sec ESV 2D 21.7 [ 14.0 - 42.0 ] ml MV E/A 2.2 [ 0.8 - 1.5 ] ratio EF 2D 78.3 [ 54.0 - 74.0 ] percent MV Decel Time 148 [ 104 - 258 ] msec LA Dimen 2D 3.3 [ 2.7 - 3.8 ] cm Lat E` Obed 0.1 [ 10.0 - 15.0 ] cm/sec Lateral E/E` 8.4 [ 1.0 - 2.0 ] ratio MV E/A 2.2 [ 0.8 - 1.5 ] ratio TR Peak Obed 2.6 [ 100.0 - 280.0 ] cm/sec TR Peak PG 27.0 mmHg RVSP 37.0 [ 10.0 - 36.0 ] mmHg RA Pressure 10.0 mmHg Findings: Left Ventricle: Normal left ventricular systolic function. Normal left ventricular cavity size. Normal left ventricular wall thickness. Ejection fraction is visually estimated at 55 %. Tissue Doppler/Mitral Doppler indices are within normal limits. Right Ventricle: Normal right ventricular size. Normal right ventricular systolic function. Left Atrium: The left atrium is normal in size. Right Atrium: The right atrium is normal in size. Mitral Valve: Normal appearance and function of the mitral valve with trace physiologic regurgitation. Aortic Valve: Normal appearance of the aortic valve. No significant aortic stenosis or insufficiency. Tricuspid Valve: Normal appearance of the tricuspid valve. The estimated Peak RVSP is 37 mmHg. There is trace tricuspid regurgitation. Pulmonic Valve: Normal pulmonic valve appearance. Pericardium: Normal pericardium with no significant pericardial effusion. Aorta: Normal aortic root. IVC: Normal size and no respiratory collapse consistent with elevated right atrial pressure. Conclusions: Normal left ventricular systolic function. Normal left ventricular cavity size. Normal left ventricular wall thickness. Ejection fraction is visually estimated at 55 %. Tissue Doppler/Mitral Doppler indices are within normal limits. Normal appearance and function of the mitral valve with trace physiologic regurgitation. Normal appearance of the aortic valve. No significant aortic stenosis or insufficiency. Normal appearance of the tricuspid valve. The estimated Peak RVSP is 37 mmHg. There is trace tricuspid regurgitation. Normal pericardium with no significant pericardial effusion. Electronically Signed By: Guerrero Irvin 2018-08-20 09:00:24 PDT
[2018-08-20] MEDS: ACETAMINOPHEN 325 MG TAB PO PRN ×2 (09:03→21:12)
--- NOTE | 2018-08-20 09:53 | CONS ---
Assessment/Plan Assessment/Plan Hospital Course (Demo Recall) 1. Dyspnea multifactorial but no evidence of cardiomyopathy 2. Severe anemia 3. 4. History of asthma 5. Marked sinus bradycardia: I doubt causing any symptoms though 6. Hypokalemia Recommendations I will stop the IV Lasix now. To be given as needed may be after transfusions transfusion as needed will be deferred to internal medicine team. Check the thyroid function test. Replace electrolyte including potassium magnesium as needed Thank you Consultation Date/Type/Reason Admit Date/Time Date of Consultation: Aug 20, 2018 Type of Consult Cardiology Reason for Consultation r/o post cardiomyopathy Requesting Provider: KATHIE ESCUDERO Date/Time of Note DATE: 08/20/18 TIME: 09:49 Hx of Present Illness Interventional cardiology consultation note Chief complaint: Lower extremity edema Reason for consult: Rule out cardiomyopathy History of present illness: Thank you for this referral. This is a pleasant 28-year-old female with history of anemia and mild asthma who had a vaginal delivery a few weeks ago at 37 weeks. Patient has had heavy bleeding since then. Came to emergency room with increasing lower extremity edema. She also has had some mild shortness of breath she has contributed to her asthma. No chest pain or pressure no PND orthopnea. She has given diuretics and his leg edema is better.. Allergies: Bee sting no known drug allergy otherwise Medications were reviewed as per medical reconciliation sheet Family history: No early coronary artery disease Social history: Non-smoker Past medical history: As above with asthma and anemia Review of system: Patient denies all others except for above-mentioned Past Medical History Home Meds Active Scripts Ibuprofen* (Ibuprofen*) 600 Mg Tablet, 600 MG PO Q6, #60 TAB 0 Refills Prov:JAMES KHAN MD 08/17/18 Albuterol Sulfate* (Proair HFA*) 8.5 Gm Hfa.aer.ad, 2 PUFF INH Q4, #1 INHALER Prov:ADDIE LOPEZ PA-C 06/10/18 Reported Medications Aspirin/Acetaminophen/Caffeine (Excedrin Migraine Geltab) 1 Each Tablet, 1 EACH PO, TAB 08/20/18 [id number] ( 19) 1 Each Tablet, 1 TAB PO DAILY, TAB 06/04/18 Discontinued Reported Medications Ursodiol* (Ursodiol*) 300 Mg Capsule, 300 MG PO BID, CAP 08/13/18 Medications Current Medications IV Flush (NS 3 ml) 3 ml PER PROTOCOL IV ; Start 08/20/18 at 03:00 Ondansetron HCl (Zofran Inj) 4 mg Q6H PRN IV NAUSEA/VOMITING; Start 08/20/18 at 03:00 Acetaminophen (Tylenol Tab) 650 mg Q6H PRN PO .PAIN 1-3 OR TEMP Last administered on 08/20/18at 09:03; Admin Dose 650 MG; Start 08/20/18 at 03:00 Docusate Sodium (Colace) 100 mg Q12H PRN PO .CONSTIPATION; Start 08/20/18 at 03:00 Bisacodyl (Dulcolax) 5 mg DAILY PRN PO .CONSTIPATION; Start 08/20/18 at 03:00 Potassium Chloride (Klor-Con 20) 40 meq BID PO Last administered on 08/20/18at 06:41; Admin Dose 40 MEQ; Start 08/20/18 at 06:00; Stop 08/21/18 at 05:59 Furosemide (Lasix) 20 mg BID DIURETICS IV ; Start 08/20/18 at 18:00 Allergies: Coded Allergies: Bee Sting Kit (Unverified Allergy, Mild, 08/20/18) No Known Drug Allergies (Unverified Allergy, Unknown, 08/20/18) Social History Alcohol Use: none Smoking Status: Never smoker Drug Use: none Exam/Review of Systems Vital Signs Vitals Vital Signs Date Temp Pulse Resp B/P (MAP) Pulse Ox O2 O2 Flow FiO2 Time Delivery Rate 08/20/18 97.8 60 18 125/71 100 Room Air 07:00 (89) Intake and Output 08/19/18 08/19/18 08/20/18 1515:00 23:00 07:00 OutputOutput Total 400 ml BalanceBalance -400 ml Exam Exam General: no acute distress HEENT: NC/AT. pupils are equal. round. NECK: NO JVD. no stridor. CV: RRR. systolic murmur; no gallop or rubs. PULM: no wheezing or rhonchi. GI: SOFT, NT, ND, no rebound or guarding Extremity: + B/L LE edema. no clubbing. neuro: awake and alert, OX3. Psych: calm and pleasant rectal: deferred EKG showed marked sinus bradycardia Echocardiogram was reviewed which shows: Normal left ventricular systolic function. Normal left ventricular cavity size. Normal left ventricular wall thickness. Ejection fraction is visually estimated at 55 %. Tissue Doppler/Mitral Doppler indices are within normal limits. Normal appearance and function of the mitral valve with trace physiologic regurgitation. Normal appearance of the aortic valve. No significant aortic stenosis or insufficiency. Normal appearance of the tricuspid valve. The estimated Peak RVSP is 37 mmHg. There is trace tricuspid regurgitation. Normal pericardium with no significant pericardial effusion. Labs Result Diagram: 08/20/18 0623 08/20/18 0623 Results 24hrs Laboratory Tests Test 08/19/18 23:49 08/20/18 06:23 White Blood Count 8.8 # 6.9 # Red Blood Count 2.80 L 3.01 L Hemoglobin 6.8 *L 7.5 L Hematocrit 22.1 L 24.2 L Mean Corpuscular Volume 78.9 L 80.4 L Mean Corpuscular Hemoglobin 24.3 L 24.9 L Mean Corpuscular Hemoglobin Concent 30.8 L 31.0 L Red Cell Distribution Width 14.2 14.5 Platelet Count 231 # 209 Mean Platelet Volume 9.6 10.3 Immature Granulocytes % 0.700 H 0.400 Neutrophils % 60.6 58.6 Lymphocytes % 31.3 32.7 Monocytes % 4.3 5.0 Eosinophils % 2.8 2.9 Basophils % 0.3 0.4 Nucleated Red Blood Cells % 0.7 H 0.9 H Immature Granulocytes # 0.060 H 0.030 Neutrophils # 5.3 4.0 Lymphocytes # 2.8 2.2 Monocytes # 0.4 0.3 Eosinophils # 0.3 0.2 Basophils # 0.0 0.0 Nucleated Red Blood Cells # 0.1 H 0.1 H Prothrombin Time 12.4 Prothrombin Time Ratio 1.0 INR International Normalized Ratio 0.91 Activated Partial Thromboplast Time 29.7 Sodium Level 140 142 Potassium Level 3.2 L 3.2 L Chloride Level 110 111 H Carbon Dioxide Level 23 23 Anion Gap 7 8 Blood Urea Nitrogen 17 15 Creatinine 0.85 0.80 Est Glomerular Filtrat Rate mL/min > 60 > 60 Glucose Level 80 80 Calcium Level 8.2 L 7.9 L Total Bilirubin 0.3 0.5 Direct Bilirubin 0.00 0.00 Indirect Bilirubin 0.3 0.5 Aspartate Amino Transf (AST/SGOT) 28 27 Alanine Aminotransferase (ALT/SGPT) 43 41 Alkaline Phosphatase 78 70 Troponin I < 0.012 B-Type Natriuretic Peptide 1170 H Total Protein 6.0 L 5.6 L Albumin 3.1 L 2.9 L Globulin 2.90 2.70 Albumin/Globulin Ratio 1.06 1.07 Iron Level 32 L Total Iron Binding Capacity 400 Percent Iron Saturation 8 L Ferritin 13.1 Medications Medications Current Medications IV Flush (NS 3 ml) 3 ml PER PROTOCOL IV ; Start 08/20/18 at 03:00 Ondansetron HCl (Zofran Inj) 4 mg Q6H PRN IV NAUSEA/VOMITING; Start 08/20/18 at 03:00 Acetaminophen (Tylenol Tab) 650 mg Q6H PRN PO .PAIN 1-3 OR TEMP Last administered on 08/20/18at 09:03; Admin Dose 650 MG; Start 08/20/18 at 03:00 Docusate Sodium (Colace) 100 mg Q12H PRN PO .CONSTIPATION; Start 08/20/18 at 03:00 Bisacodyl (Dulcolax) 5 mg DAILY PRN PO .CONSTIPATION; Start 08/20/18 at 03:00 Potassium Chloride (Klor-Con 20) 40 meq BID PO Last administered on 08/20/18at 06:41; Admin Dose 40 MEQ; Start 08/20/18 at 06:00; Stop 08/21/18 at 05:59 Furosemide (Lasix) 20 mg BID DIURETICS IV ; Start 08/20/18 at 18:00 TACHO ALAN MD Aug 20, 2018 09:53
[2018-08-20] MEDS ORDERED: FUROSEMIDE 20 MG INJ IV SCH (18:00)
[2018-08-20] MEDS ORDERED: ASA/ACETAMINOPHEN/CAFF TAB PO PRN (18:09)
--- NOTE | 2018-08-20 18:13 | PN ---
Date/Time of Note Date/Time of Note DATE: 08/20/18 TIME: 18:06 Assessment/Plan VTE Prophylaxis SCD applied (from Nsg): Yes Pharmacological prophylaxis: NA/contraindicated Pharm contraindication: bleeding Lines/Catheters IV Catheter Type (from Nrsg): Saline Lock Assessment/Plan Hospital Course 1. Acute respiratory distress likely secondary to anemia Echo shows no evidence of heart failure CT chest shows a 7 mm pulmonary nodule in the lingula, findings suggestive of infectious or inflammatory process, pulmonary edema and bilateral effusions are also noted Patient with no evidence of sepsis or pneumonia/bronchitis, hold off antibiotic for now Pulmonology consultation Lasix IV Cardiology consultation appreciated Status post blood transfusion 2. Lower extremity edema like secondary to volume overload and/or lymphedema Echo shows preserved EF Lasix IV 3. Acute blood loss anemia: Patient did report vaginal clots, given her symptoms have transfused 1 unit of packed red blood cell Consultation with PICTURES EDITOR for further evaluation of patient's vaginal blood clots Iron panel noted 4. Obesity Follow-up on A1c, lipid panel and TSH 5. Sinus bradycardia Replete electrolytes Cardiology consultation appreciated 6. Headache Excedrin as needed Prophylaxis: SCDs Result Diagram: 08/20/18 1739 08/20/18 0623 Results 24hrs Laboratory Tests Test 08/19/18 23:49 08/20/18 06:23 08/20/18 10:57 08/20/18 11:40 White Blood Count 8.8 # 6.9 # 8.3 # Red Blood Count 2.80 L 3.01 L 3.44 L Hemoglobin 6.8 *L 7.5 L 8.6 L Hematocrit 22.1 L 24.2 L 27.2 L Mean Corpuscular 78.9 L 80.4 L 79.1 L Volume Mean Corpuscular 24.3 L 24.9 L 25.0 L Hemoglobin Mean Corpuscular 30.8 L 31.0 L 31.6 L Hemoglobin Concent Red Cell 14.2 14.5 14.4 Distribution Width Platelet Count 231 # 209 248 Mean Platelet Volume 9.6 10.3 9.9 Immature 0.700 H 0.400 1.000 H Granulocytes % Neutrophils % 60.6 58.6 68.8 Lymphocytes % 31.3 32.7 23.0 Monocytes % 4.3 5.0 4.4 Eosinophils % 2.8 2.9 2.4 Basophils % 0.3 0.4 0.4 Nucleated Red Blood 0.7 H 0.9 H 1.0 H Cells % Immature 0.060 H 0.030 0.080 H Granulocytes # Neutrophils # 5.3 4.0 5.7 Lymphocytes # 2.8 2.2 1.9 Monocytes # 0.4 0.3 0.4 Eosinophils # 0.3 0.2 0.2 Basophils # 0.0 0.0 0.0 Nucleated Red Blood 0.1 H 0.1 H 0.1 H Cells # Prothrombin Time 12.4 Prothrombin Time 1.0 Ratio INR International 0.91 Normalized Ratio Activated 29.7 Partial Thromboplast Time Sodium Level 140 142 Potassium Level 3.2 L 3.2 L Chloride Level 110 111 H Carbon Dioxide Level 23 23 Anion Gap 7 8 Blood Urea Nitrogen 17 15 Creatinine 0.85 0.80 Est Glomerular > 60 > 60 Filtrat Rate mL/min Glucose Level 80 80 Calcium Level 8.2 L 7.9 L Total Bilirubin 0.3 0.5 Direct Bilirubin 0.00 0.00 Indirect Bilirubin 0.3 0.5 Aspartate Amino 28 27 Transf (AST/SGOT) Alanine 43 41 Aminotransferase (AL T/SGPT) Alkaline Phosphatase 78 70 Troponin I < 0.012 B-Type Natriuretic 1170 H Peptide Total Protein 6.0 L 5.6 L Albumin 3.1 L 2.9 L Globulin 2.90 2.70 Albumin/Globulin 1.06 1.07 Ratio Iron Level 32 L Total Iron Binding 400 Capacity Percent Iron 8 L Saturation Ferritin 13.1 Urine Color COLORLESS Urine Clarity CLEAR Urine pH 7.0 Urine Specific 1.008 [place] Urine Ketones NEGATIVE Urine Nitrite NEGATIVE Urine Bilirubin NEGATIVE Urine Urobilinogen NEGATIVE Urine Leukocyte NEGATIVE Esterase Urine Hemoglobin NEGATIVE Urine Glucose NEGATIVE Urine Total Protein NEGATIVE Test 08/20/18 17:39 White Blood Count 8.9 Red Blood Count 3.62 L Hemoglobin 9.0 L Hematocrit 28.5 L Mean Corpuscular 78.7 L Volume Mean Corpuscular 24.9 L Hemoglobin Mean Corpuscular 31.6 L Hemoglobin Concent Red Cell 14.4 Distribution Width Platelet Count 259 Mean Platelet Volume 9.9 Immature 0.600 H Granulocytes % Neutrophils % 68.1 Lymphocytes % 24.0 Monocytes % 5.0 Eosinophils % 2.0 Basophils % 0.3 Nucleated Red Blood 0.4 H Cells % Immature 0.050 H Granulocytes # Neutrophils # 6.1 Lymphocytes # 2.1 Monocytes # 0.5 Eosinophils # 0.2 Basophils # 0.0 Nucleated Red Blood 0.0 Cells # Subjective 24 Hr Interval Summary Constitutional: no complaints Exam/Review of Systems Exam Vitals Vital Signs Date Temp Pulse Resp B/P (MAP) Pulse Ox O2 O2 Flow FiO2 Time Delivery Rate 08/20/18 59 16:22 08/20/18 99.2 20 135/74 96 Room Air 16:21 (94) Intake and Output 08/19/18 08/19/18 08/20/18 1414:59 22:59 06:59 OutputOutput Total 400 ml BalanceBalance -400 ml Constitutional: alert, oriented Respiratory: clear to auscultation Cardiovascular: regular rate and rhythm Gastrointestinal: soft; No distended Musculoskeletal: nl extremities to inspection Results Results 24hrs Laboratory Tests Test 08/19/18 23:49 08/20/18 06:23 08/20/18 10:57 08/20/18 11:40 White Blood Count 8.8 # 6.9 # 8.3 # Red Blood Count 2.80 L 3.01 L 3.44 L Hemoglobin 6.8 *L 7.5 L 8.6 L Hematocrit 22.1 L 24.2 L 27.2 L Mean Corpuscular 78.9 L 80.4 L 79.1 L Volume Mean Corpuscular 24.3 L 24.9 L 25.0 L Hemoglobin Mean Corpuscular 30.8 L 31.0 L 31.6 L Hemoglobin Concent Red Cell 14.2 14.5 14.4 Distribution Width Platelet Count 231 # 209 248 Mean Platelet Volume 9.6 10.3 9.9 Immature 0.700 H 0.400 1.000 H Granulocytes % Neutrophils % 60.6 58.6 68.8 Lymphocytes % 31.3 32.7 23.0 Monocytes % 4.3 5.0 4.4 Eosinophils % 2.8 2.9 2.4 Basophils % 0.3 0.4 0.4 Nucleated Red Blood 0.7 H 0.9 H 1.0 H Cells % Immature 0.060 H 0.030 0.080 H Granulocytes # Neutrophils # 5.3 4.0 5.7 Lymphocytes # 2.8 2.2 1.9 Monocytes # 0.4 0.3 0.4 Eosinophils # 0.3 0.2 0.2 Basophils # 0.0 0.0 0.0 Nucleated Red Blood 0.1 H 0.1 H 0.1 H Cells # Prothrombin Time 12.4 Prothrombin Time 1.0 Ratio INR International 0.91 Normalized Ratio Activated 29.7 Partial Thromboplast Time Sodium Level 140 142 Potassium Level 3.2 L 3.2 L Chloride Level 110 111 H Carbon Dioxide Level 23 23 Anion Gap 7 8 Blood Urea Nitrogen 17 15 Creatinine 0.85 0.80 Est Glomerular > 60 > 60 Filtrat Rate mL/min Glucose Level 80 80 Calcium Level 8.2 L 7.9 L Total Bilirubin 0.3 0.5 Direct Bilirubin 0.00 0.00 Indirect Bilirubin 0.3 0.5 Aspartate Amino 28 27 Transf (AST/SGOT) Alanine 43 41 Aminotransferase (AL T/SGPT) Alkaline Phosphatase 78 70 Troponin I < 0.012 B-Type Natriuretic 1170 H Peptide Total Protein 6.0 L 5.6 L Albumin 3.1 L 2.9 L Globulin 2.90 2.70 Albumin/Globulin 1.06 1.07 Ratio Iron Level 32 L Total Iron Binding 400 Capacity Percent Iron 8 L Saturation Ferritin 13.1 Urine Color COLORLESS Urine Clarity CLEAR Urine pH 7.0 Urine Specific 1.008 [place] Urine Ketones NEGATIVE Urine Nitrite NEGATIVE Urine Bilirubin NEGATIVE Urine Urobilinogen NEGATIVE Urine Leukocyte NEGATIVE Esterase Urine Hemoglobin NEGATIVE Urine Glucose NEGATIVE Urine Total Protein NEGATIVE Test 08/20/18 17:39 White Blood Count 8.9 Red Blood Count 3.62 L Hemoglobin 9.0 L Hematocrit 28.5 L Mean Corpuscular 78.7 L Volume Mean Corpuscular 24.9 L Hemoglobin Mean Corpuscular 31.6 L Hemoglobin Concent Red Cell 14.4 Distribution Width Platelet Count 259 Mean Platelet Volume 9.9 Immature 0.600 H Granulocytes % Neutrophils % 68.1 Lymphocytes % 24.0 Monocytes % 5.0 Eosinophils % 2.0 Basophils % 0.3 Nucleated Red Blood 0.4 H Cells % Immature 0.050 H Granulocytes # Neutrophils # 6.1 Lymphocytes # 2.1 Monocytes # 0.5 Eosinophils # 0.2 Basophils # 0.0 Nucleated Red Blood 0.0 Cells # Medications Medication Current Medications IV Flush (NS 3 ml) 3 ml PER PROTOCOL IV ; Start 08/20/18 at 03:00 Ondansetron HCl (Zofran Inj) 4 mg Q6H PRN IV NAUSEA/VOMITING; Start 08/20/18 at 03:00 Acetaminophen (Tylenol Tab) 650 mg Q6H PRN PO .PAIN 1-3 OR TEMP Last administered on 08/20/18at 09:03; Admin Dose 650 MG; Start 08/20/18 at 03:00 Docusate Sodium (Colace) 100 mg Q12H PRN PO .CONSTIPATION; Start 08/20/18 at 03:00 Bisacodyl (Dulcolax) 5 mg DAILY PRN PO .CONSTIPATION; Start 08/20/18 at 03:00 Potassium Chloride (Klor-Con 20) 40 meq BID PO Last administered on 08/20/18at 06:41; Admin Dose 40 MEQ; Start 08/20/18 at 06:00; Stop 08/21/18 at 05:59 KEN SALMERON Aug 20, 2018 18:13
[2018-08-20] MEDS ORDERED: SOD FERRIC GLUC COMPLX 125 MG in SOD CHLORIDE 0.9% 100 ML IVPB ONE (22:00)
[2018-08-20] MEDS ORDERED: BENZOCAINE 20% 56 ML SPRAY TOP PRN (22:30)
[2018-08-20] MEDS ORDERED: WITCH HAZEL/GLYCERIN PAD PR PRN (22:30)
[2018-08-21] VITALS (8 sets, daily range): BP systolic 105–119; BP diastolic 53–64; PULSE 50–62; RESP 18–20
[2018-08-21] MEDS ORDERED: FUROSEMIDE 20 MG INJ IV SCH (06:00)
--- NOTE | 2018-08-21 07:43 | CONS ---
Consult Date/Type/Reason Admit Date/Time Aug 20, 2018 at 02:26 Initial Consult Date 08/20/18 Type of Consultation: cv Requesting Provider: KATHIE ESCUDERO Date/Time of Note DATE: 08/21/18 TIME: 07:41 Subjective cv follow up S: Patient with no chest pain or pressure. She has less lower extremity edema now. No palpitation no dyspnea no PND orthopnea Objective: General: no acute distress HEENT: NC/AT. pupils are equal. round. NECK: NO JVD. no stridor. CV: RRR. systolic murmur; no gallop or rubs. PULM: no wheezing or rhonchi. GI: SOFT, NT, ND, no rebound or guarding Extremity: +TRIVIAL LE eating edema. no clubbing. neuro: awake and alert, OX3. Psych: calm and pleasant rectal: deferred EKG showed marked sinus bradycardia Echocardiogram was reviewed which shows: Normal left ventricular systolic function. Normal left ventricular cavity size. Normal left ventricular wall thickness. Ejection fraction is visually estimated at 55 %. Tissue Doppler/Mitral Doppler indices are within normal limits. Normal appearance and function of the mitral valve with trace physiologic regurgitation. Normal appearance of the aortic valve. No significant aortic stenosis or insufficiency. Normal appearance of the tricuspid valve. The estimated Peak RVSP is 37 mmHg. There is trace tricuspid regurgitation. Normal pericardium with no significant pericardial effusion. Objective Vitals Vital Signs Date Temp Pulse Resp B/P (MAP) Pulse Ox O2 O2 Flow FiO2 Time Delivery Rate 08/21/18 98.0 61 18 119/57 97 Room Air 05:58 (77) Intake and Output 08/20/18 08/20/18 08/21/18 1515:00 23:00 07:00 IntakeIntake Total 600 ml 600 ml OutputOutput Total 4900 ml 800 ml 2250 ml BalanceBalance -4900 ml -200 ml -1650 ml Results/Medications Result Diagram: 08/20/18 2306 08/21/18 0548 Results 24 hrs Laboratory Tests Test 08/20/18 10:57 08/20/18 11:40 08/20/18 17:39 08/20/18 23:06 White Blood Count 8.3 # 8.9 9.3 Red Blood Count 3.44 L 3.62 L 3.44 L Hemoglobin 8.6 L 9.0 L 8.5 L Hematocrit 27.2 L 28.5 L 27.1 L Mean Corpuscular 79.1 L 78.7 L 78.8 L Volume Mean Corpuscular 25.0 L 24.9 L 24.7 L Hemoglobin Mean Corpuscular 31.6 L 31.6 L 31.4 L Hemoglobin Concent Red Cell 14.4 14.4 14.3 Distribution Width Platelet Count 248 259 259 Mean Platelet Volume 9.9 9.9 10.0 Immature 1.000 H 0.600 H 0.500 H Granulocytes % Neutrophils % 68.8 68.1 65.2 Lymphocytes % 23.0 24.0 26.4 Monocytes % 4.4 5.0 5.3 Eosinophils % 2.4 2.0 2.1 Basophils % 0.4 0.3 0.5 Nucleated Red Blood 1.0 H 0.4 H 0.4 H Cells % Immature 0.080 H 0.050 H 0.050 H Granulocytes # Neutrophils # 5.7 6.1 6.1 Lymphocytes # 1.9 2.1 2.5 Monocytes # 0.4 0.5 0.5 Eosinophils # 0.2 0.2 0.2 Basophils # 0.0 0.0 0.1 Nucleated Red Blood 0.1 H 0.0 0.0 Cells # Urine Color COLORLESS Urine Clarity CLEAR Urine pH 7.0 Urine Specific 1.008 [place] Urine Ketones NEGATIVE Urine Nitrite NEGATIVE Urine Bilirubin NEGATIVE Urine Urobilinogen NEGATIVE Urine Leukocyte NEGATIVE Esterase Urine Hemoglobin NEGATIVE Urine Glucose NEGATIVE Urine Total Protein NEGATIVE Test 08/21/18 05:48 Sodium Level 143 Potassium Level 3.8 Chloride Level 109 Carbon Dioxide Level 25 Anion Gap 9 Blood Urea Nitrogen 17 Creatinine 0.84 Est Glomerular > 60 Filtrat Rate mL/min Glucose Level 88 Calcium Level 8.3 L Magnesium Level 2.0 Total Bilirubin 0.4 Direct Bilirubin 0.00 Indirect Bilirubin 0.4 Aspartate Amino 29 Transf (AST/SGOT) Alanine 58 Aminotransferase (AL T/SGPT) Alkaline Phosphatase 73 B-Type Natriuretic 833 H Peptide Total Protein 5.8 L Albumin 2.8 L Globulin 3.00 Albumin/Globulin 0.93 Ratio Free Thyroxine 0.91 Home Meds Active Scripts Ibuprofen* (Ibuprofen*) 600 Mg Tablet, 600 MG PO Q6, #60 TAB 0 Refills Prov:JAMES KHAN MD 08/17/18 Albuterol Sulfate* (Proair HFA*) 8.5 Gm Hfa.aer.ad, 2 PUFF INH Q4, #1 INHALER Prov:ADDIE LOPEZ PA-C 06/10/18 Reported Medications Aspirin/Acetaminophen/Caffeine (Excedrin Migraine Geltab) 1 Each Tablet, 1 EACH PO, TAB 08/20/18 [id number] ( 19) 1 Each Tablet, 1 TAB PO DAILY, TAB 06/04/18 Discontinued Reported Medications Ursodiol* (Ursodiol*) 300 Mg Capsule, 300 MG PO BID, CAP 08/13/18 Medications Current Medications IV Flush (NS 3 ml) 3 ml PER PROTOCOL IV ; Start 08/20/18 at 03:00 Ondansetron HCl (Zofran Inj) 4 mg Q6H PRN IV NAUSEA/VOMITING; Start 08/20/18 at 03:00 Acetaminophen (Tylenol Tab) 650 mg Q6H PRN PO .PAIN 1-3 OR TEMP Last administered on 08/20/18at 21:12; Admin Dose 650 MG; Start 08/20/18 at 03:00 Docusate Sodium (Colace) 100 mg Q12H PRN PO .CONSTIPATION; Start 08/20/18 at 03:00 Bisacodyl (Dulcolax) 5 mg DAILY PRN PO .CONSTIPATION; Start 08/20/18 at 03:00 Acetaminophen/ Aspirin/Caffeine (Excedrin) 1 tab Q6H PRN PO MIGRAINE PAIN Last administered on 08/20/18at 18:19; Admin Dose 1 TAB; Start 08/20/18 at 18:09 Furosemide (Lasix) 20 mg BID DIURETICS IV Last administered on 08/21/18at 06:10; Admin Dose 20 MG; Start 08/21/18 at 06:00 Witch Gretel/ Glycerin (Tucks Pads) 1 pad PRN PRN LA VAGINAL/PERINEAL DISCOMFORT; Start 08/20/18 at 22:30 Benzocaine (Dermoplast [place]) 1 spray PRN PRN TOP vaginal/perineal discomfort; Start 08/20/18 at 22:30 Assessment/Plan Hospital Course (Demo Recall) 1. Dyspnea multifactorial but no evidence of cardiomyopathy 2. Severe anemia 3. 4. History of asthma 5. Marked sinus bradycardia: I doubt causing any symptoms though 6. Hypokalemia corrected now Recommendations I have stopped the IV Lasix but was resumed already by internal medicine. Will defer to internal medicine team Replace electrolyte including potassium magnesium as needed No further cardiac work-up is needed. I will follow-up as needed basis. Thank you TACHO ALAN MD Aug 21, 2018 07:43
--- NOTE | 2018-08-21 11:59 | CONS ---
Assessment/Plan Assessment/Plan Assessment/Plan (Daily) CT chest is showing bibasilar pleural thickening 6 mm nodule lingula, peripheral. smooth bordered. A/R: 1- asthma, stable, asymptomatic 2- chronic appearing bibasilar pleural changes 3- small , 7 mm nodule lingula. 4- uterine bleeding. Continue current treatment. Follow up CT chest 6, 12 and 24 months to ensure stability. Consultation Date/Type/Reason Admit Date/Time Aug 20, 2018 at 02:26 Date of Consultation: Aug 21, 2018 Type of Consult Pulmonary Pulmonary consult requested for evaluation of asthma and lingular nodule. Patient is a pleasant 28-year-old lady who came into the hospital with complaints of uterine bleeding. Patient has a history of recent 6 days ago. The patient has had asthma flareups during but according to her she is doing very well now. He denies any shortness of breath, wheezing, cough, sputum production. Denies any nocturnal symptoms. Denies any abdominal pain, nausea vomiting. Uterine bleeding is improving. By the time I saw her, patient was completely awake alert was on room air and did not appear to be in any distress whatsoever. Past medical history; 1. Recent delivery. Patient has 6 children. History of asthma with flareup during . Medications; reviewed. Allergies; no medications. Social history; patient has a prior history of smoking. No history of alcohol drug abuse. Family history; she is , has a total of 7 children. No show any illnesses in the family. 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 Review of systems; denies any headache, visual changes, sinus symptoms, postnasal drip, chest pain, wheezing, cough, sputum production. Denies any nocturnal shortness of breath. Any dyspnea on exertion. Denies any abdominal p ain, nausea vomiting. Complains of mild lower abdominal discomfort. Uterine bleeding is improving. Denies any edema orthopnea weight change any skin changes. General exam; young woman, awake alert, currently in no distress. Date/Time of Note DATE: 08/21/18 TIME: 11:52 Past Medical History Home Meds Active Scripts Ibuprofen* (Ibuprofen*) 600 Mg Tablet, 600 MG PO Q6, #60 TAB 0 Refills Prov:JAMES KHAN MD 08/17/18 Albuterol Sulfate* (Proair HFA*) 8.5 Gm Hfa.aer.ad, 2 PUFF INH Q4, #1 INHALER Prov:ADDIE LOPEZ PA-C 06/10/18 Reported Medications Aspirin/Acetaminophen/Caffeine (Excedrin Migraine Geltab) 1 Each Tablet, 1 EACH PO, TAB 08/20/18 [id number] ( 19) 1 Each Tablet, 1 TAB PO DAILY, TAB 06/04/18 Discontinued Reported Medications Ursodiol* (Ursodiol*) 300 Mg Capsule, 300 MG PO BID, CAP 08/13/18 Medications Current Medications IV Flush (NS 3 ml) 3 ml PER PROTOCOL IV ; Start 08/20/18 at 03:00 Ondansetron HCl (Zofran Inj) 4 mg Q6H PRN IV NAUSEA/VOMITING; Start 08/20/18 at 03:00 Acetaminophen (Tylenol Tab) 650 mg Q6H PRN PO .PAIN 1-3 OR TEMP Last adminis tered on 08/20/18at 21:12; Admin Dose 650 MG; Start 08/20/18 at 03:00 Docusate Sodium (Colace) 100 mg Q12H PRN PO .CONSTIPATION; Start 08/20/18 at 03:00 Bisacodyl (Dulcolax) 5 mg DAILY PRN PO .CONSTIPATION; Start 08/20/18 at 03:00 Acetaminophen/ Aspirin/Caffeine (Excedrin) 1 tab Q6H PRN PO MIGRAINE PAIN Last administered on 08/20/18at 18:19; Admin Dose 1 TAB; Start 08/20/18 at 18:09 Furosemide (Lasix) 20 mg BID DIURETICS IV Last administered on 08/21/18at 06:10; Admin Dose 20 MG; Start 08/21/18 at 06:00 Witch Gretel/ Glycerin (Tucks Pads) 1 pad PRN PRN [place] VAGINAL/PERINEAL DISCOMFORT; Start 08/20/18 at 22:30 Benzocaine (Dermoplast [place]) 1 spray PRN PRN TOP vaginal/perineal discomfort; Start 08/20/18 at 22:30 Allergies: Coded Allergies: Bee Sting Kit (Unverified Allergy, Mild, 08/20/18) No Known Drug Allergies (Unverified Allergy, Unknown, 08/20/18) Social History Alcohol Use: none Smoking Status: Never smoker Drug Use: none Exam/Review of Systems Exam Vitals Vital Signs Date Temp Pulse Resp B/P (MAP) Pulse Ox O2 O2 Flow FiO2 Time Delivery Rate 08/21/18 98.8 59 20 119/64 97 Room Air 11:01 (82) Intake and Output 08/20/18 08/20/18 08/21/18 1515:00 23:00 07:00 IntakeIntake Total 600 ml 600 ml OutputOutput Total 4900 ml 800 ml 2250 ml BalanceBalance -4900 ml -200 ml -1650 ml Exam HEENT exam; supple neck, no JVD. No lymphadenopathy. Midline trachea. No thyromegaly. Patient has good dentition. No neck masses. Chest exam; clear to auscultation. S1-S2 audible, no murmurs. Regular rhythm. Abdomen exam; nondistended. Extremity exam; no peripheral edema clubbing. 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 Results Result Diagram: 08/20/18 2306 08/21/18 0548 Results 24hrs Laboratory Tests Test 08/20/18 17:39 08/20/18 23:06 08/21/18 05:48 White Blood Count 8.9 9.3 Red Blood Count 3.62 L 3.44 L Hemoglobin 9.0 L 8.5 L Hematocrit 28.5 L 27.1 L Mean Corpuscular Volume 78.7 L 78.8 L Mean Corpuscular Hemoglobin 24.9 L 24.7 L Mean Corpuscular Hemoglobin Concent 31.6 L 31.4 L Red Cell Distribution Width 14.4 14.3 Platelet Count 259 259 Mean Platelet Volume 9.9 10.0 Immature Granulocytes % 0.600 H 0.500 H Neutrophils % 68.1 65.2 Lymphocytes % 24.0 26.4 Monocytes % 5.0 5.3 Eosinophils % 2.0 2.1 Basophils % 0.3 0.5 Nucleated Red Blood Cells % 0.4 H 0.4 H Immature Granulocytes # 0.050 H 0.050 H Neutrophils # 6.1 6.1 Lymphocytes # 2.1 2.5 Monocytes # 0.5 0.5 Eosinophils # 0.2 0.2 Basophils # 0.0 0.1 Nucleated Red Blood Cells # 0.0 0.0 Sodium Level 143 Potassium Level 3.8 Chloride Level 109 Carbon Dioxide Level 25 Anion Gap 9 Blood Urea Nitrogen 17 Creatinine 0.84 Est Glomerular Filtrat Rate mL/min > 60 Glucose Level 88 Calcium Level 8.3 L Magnesium Level 2.0 Total Bilirubin 0.4 Direct Bilirubin 0.00 Indirect Bilirubin 0.4 Aspartate Amino Transf (AST/SGOT) 29 Alanine Aminotransferase (ALT/SGPT) 58 Alkaline Phosphatase 73 B-Type Natriuretic Peptide 833 H Total Protein 5.8 L Albumin 2.8 L Globulin 3.00 Albumin/Globulin Ratio 0.93 Thyroid Stimulating Hormone (TSH) 2.740 Free Thyroxine 0.91 Free Triiodothyronine (T3) pg/mL 2.46 L Medications Medication Current Medications IV Flush (NS 3 ml) 3 ml PER PROTOCOL IV ; Start 08/20/18 at 03:00 Ondansetron HCl (Zofran Inj) 4 mg Q6H PRN IV NAUSEA/VOMITING; Start 08/20/18 at 03:00 Acetaminophen (Tylenol Tab) 650 mg Q6H PRN PO .PAIN 1-3 OR TEMP Last administered on 08/20/18at 21:12; Admin Dose 650 MG; Start 08/20/18 at 03:00 Docusate Sodium (Colace) 100 mg Q12H PRN PO .CONSTIPATION; Start 08/20/18 at 03:00 Bisacodyl (Dulcolax) 5 mg DAILY PRN PO .CONSTIPATION; Start 08/20/18 at 03:00 Acetaminophen/ Aspirin/Caffeine (Excedrin) 1 tab Q6H PRN PO MIGRAINE PAIN Last administered on 08/20/18at 18:19; Admin Dose 1 TAB; Start 08/20/18 at 18:09 Furosemide (Lasix) 20 mg BID DIURETICS IV Last administered on 08/21/18at 06:10; Admin Dose 20 MG; Start 08/21/18 at 06:00 Witch Gretel/ Glycerin (Tucks Pads) 1 pad PRN PRN [place] VAGINAL/PERINEAL DISCOMFORT; Start 08/20/18 at 22:30 Benzocaine (Dermoplast [place]) 1 spray PRN PRN TOP vaginal/perineal discomfort; Start 08/20/18 at 22:30 PAL DUARTE 19, 2019 11:59
--- NOTE | 2018-08-21 14:17 | PDOCDIS ---
Discharge Instructions CONDITION [id number] Patient Condition: [id number] Good HOME CARE INSTRUCTIONS: [id number] Diet Instructions: [id number] Reduced Calorie ACTIVITY: [id number] Activity Restrictions: [id number] No Restrictions FOLLOW UP/APPOINTMENTS Follow-up Plan FOLLOW UP WITH YOUR PCP IN 1-2 WEEKS KEN SALMERON Aug 21, 2018 14:17
--- NOTE | 2018-08-21 14:39 | DS ---
Date/Time of Note Date/Time of Note DATE: 08/21/18 TIME: 14:36 Discharge Summary Admission/Discharge Info Admit Date/Time Aug 20, 2018 at 02:26 Discharge Date/Time August 21, 2018 Discharge Diagnosis 1. Acute respiratory distress secondary to anasarca and anemia Echo shows no evidence of heart failure CT chest shows a 7 mm pulmonary nodule in the lingula, findings suggestive of infectious or inflammatory process, pulmonary edema and bilateral effusions are also noted Patient with no evidence of sepsis or pneumonia/bronchitis, hold off antibiotic for now Pulmonology consultation appreciated, follow-up CT in 6 to 12 months Status post Lasix IV, no indication for Lasix Cardiology consultation appreciated Status post blood transfusion 2. Lower extremity edema like secondary to volume overload and/or lymphedema- resolved Echo shows preserved EF Status post Lasix IV 3. Acute blood loss anemia-stable Patient did report vaginal clots, given her symptoms have transfused 1 unit of packed red blood cell Follow-up with [facility] Iron panel noted 4. Obesity Lifestyle changes 5. Sinus bradycardia-improved Replete electrolytes Cardiology consultation appreciated 6. Headache Excedrin as needed Patient Condition: Good Hospital Course Patient is a 20-year-old female with a history of recent delivery, patient presents with shortness of breath with lower extremity swelling was found to be anemi and fluid overloaded. Echo showed preserved EF, CT chest did show evidence of pulmonary edema, patient was seen by cardiology and pulmonology. Patient was given Lasix IV with appropriate diuresis and urinary output and resolution of anasarca. Patient was transfused 1 unit packed red blood cells etiology was likely secondary to recent and delivery. Patient was stable for DC, on the day of discharge patient's vitals, labs and physical exam are stable. Home Meds Active Scripts Ibuprofen* (Ibuprofen*) 600 Mg Tablet, 600 MG PO Q6, #60 TAB 0 Refills Prov:JAMES KHAN MD 08/17/18 Albuterol Sulfate* (Proair HFA*) 8.5 Gm Hfa.aer.ad, 2 PUFF INH Q4, #1 INHALER Prov:ADDIE LOPEZ PA-C 06/10/18 Reported Medications Aspirin/Acetaminophen/Caffeine (Excedrin Migraine Geltab) 1 Each Tablet, 1 EACH PO, TAB 08/20/18 [id number] ( 19) 1 Each Tablet, 1 TAB PO DAILY, TAB 06/04/18 Discontinued Reported Medications Ursodiol* (Ursodiol*) 300 Mg Capsule, 300 MG PO BID, CAP 08/13/18 Follow-up Plan FOLLOW UP WITH YOUR PCP IN 1-2 WEEKS Primary Care Provider Care Physician No Primary Time spent on discharge: > 30 minutes KEN SALMERON Aug 21, 2018 14:39
--- NOTE | 2018-08-21 14:42 | QN ---
Documentation Comment 29-year-old female status post vaginal delivery was admitted by medicine service for shortness of breath possibly because of severe anemia Patient had uncomplicated hospital stay during the labor and delivery and maternity course This service was asked to evaluate vaginal bleeding Patient does not have significant vaginal delivering and has a normal lochia She probably appears stable to be discharged this service will follow the patient as outpatient for obstetrics problems JAMES KHAN MD Aug 21, 2018 14:42
== END 2018-08-21 15:50 | disposition home or self-care (01) | DRG 776 ==
LOC: E/R 20:52 → 6WM 08-20 02:26
PROVIDERS: ADMIT Family Medicine; ATTEND Internal Medicine
PROC: 30233N1 Transfusion of Nonautologous Red Blood Cells into Peripheral Vein, Percutaneous Approach (ICD-10-PCS; principal; 2018-08-20)
DX: O90.81 Anemia of the puerperium (principal); D62 Acute posthemorrhagic anemia; O90.89 Other complications of the puerperium, not elsewhere classified; R00.1 Bradycardia, unspecified; E66.9 Obesity, unspecified; Z68.37 Body mass index [BMI] 37.0-37.9, adult; O12.05 Gestational edema, complicating the puerperium; E87.6 Hypokalemia; R06.03 Acute respiratory distress
CPT/HCPCS: 36430; 71045; 71250; 76705; 80053; 81003; 82728; 83540; 83735; 83880; 84439; 84443; 84481; 84484; 85025; 85610; 85730; 86850; 86900; 86901; 86920; 87081; 93005; 93306; 93970; J1940; J2916; P9016